=== PATIENT | male | born 1950 | race Caucasian/White ===

== ENCOUNTER 2022-07-15 05:49 | Outpatient (CLI) | payer OTHER, SELFPAY ==
--- OUTSIDE RECORDS SUMMARY | 2022-07-24 14:35 | XMS_ITS | Clinical Summary ---
:1950 Author Organization [facility] [place] [address] Care Team Providers Name Role Phone Zeeshan Jones MD Primary Care Provider [phone] Aaron Verdin DPM Unavailable Allergies No [...] if needed. Primary osteoarthritis of right knee [place]-3 Fatty Acids Take 1-2 capsules 0 05/20/2019 [...] Active equipment [employer], (DME)Indications: LARGE, RE: [id number] Plantar fasciitis hydrocortisone 1 % Apply topically [...] with specific stimuli 08/11/2015 Overview: Last seizure 1978 in [place] Pure hypercholesterolemia 07/18/2011 cerebral palsy Overview: Affecting whole left side Essential hypertension Resolved Problems Problem Noted Date Resolved Date Infantile cerebral palsy, unspecified 03/06/2007 Other convulsions 03/06/2007 09/10/2008 Epilepsy 08/11/2015 Encounters Date Type Specialty Care Team Description 07/15/2022 Orders Only Scanner <No scans attac hed> 06/11/2022 Office Visit Frieda Hudson Emily, DO Ear Pro blem (Both ears) 06/11/2022 Travel from Last 3 Months Immunizations Name Administration Dates Next Due COVID-19 vaccine (Intercasting 06/11/2022 30mcg/0.3mL) 12YO+ SOHEILA-SUCROSE PF, MDV Influenza [...] 167.6 cm (5' 6) 11/16/2019 9:46 AM 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 from Last 3 Months Results SCAN-RADIOLOGY REPORT (07/15/2022 12:00 AM CDT) Narrative This result has an attachment that is no t available. 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
== END 2022-07-15 05:50 | disposition home or self-care (01) ==
PROVIDERS: PCP Family Medicine; Visit Provider Internal Medicine
DX: S49.91XA Unspecified injury of right shoulder and upper arm, initial encounter (principal); W18.09XA Striking against other object with subsequent fall, initial encounter; Y92.091 Bathroom in other non-institutional residence as the place of occurrence of the external cause
CPT/HCPCS: A0425; A0429

== ENCOUNTER 2022-07-15 06:07 | Emergency (ER) | payer OTHER, SELFPAY ==
--- NOTE | 2022-07-15 06:14 | CRLHL7_ITS ---
For Patients: As a result of the Cures Act, medical imaging exams and procedure reports are released immediately into your electronic medical record. You may view this report before your referring provider. If you have questions, please contact your health care provider. INDICATION: Injury. Right-sided pain. FINDINGS: Three views of the right shoulder show no evidence of acute fracture or dislocation. No other bony or soft tissue abnormalities identified. Dictated by Valentin Cummings MD @ 07/15/2022 7:31:55 AM Dictated by: Valentin Cummings MD @ 07/15/2022 07:32:00 (Electronically Signed)
--- NOTE | 2022-07-15 06:14 | CRLHL7_ITS ---
For Patients: As a result of the Cures Act, medical imaging exams and procedure reports are released immediately into your electronic medical record. You may view this report before your referring provider. If you have questions, please contact your health care provider. INDICATION: Knee pain. FINDINGS: Three views of the right knee show no evidence of acute fracture. Lateral patellar subluxation/dislocation. Medial and lateral joint space narrowing. Chondrocalcinosis. No other bony or soft tissue abnormalities identified. Dictated by Valentin Cummings MD @ 07/15/2022 7:30:36 AM Dictated by: Valentin Cummings MD @ 07/15/2022 07:30:44 (Electronically Signed)
--- NOTE | 2022-07-15 06:14 | CRLHL7_ITS ---
For Patients: As a result of the Cures Act, medical imaging exams and procedure reports are released immediately into your electronic medical record. You may view this report before your referring provider. If you have questions, please contact your health care provider. INDICATION: Injury. Pain. FINDINGS: Three views of the right ankle show no evidence of acute fracture or dislocation. Vascular calcifications. Plantar calcaneal spur. No other bony or soft tissue abnormalities identified. Dictated by Valentin Cummings MD @ 07/15/2022 7:33:33 AM Dictated by: Valentin Cummings MD @ 07/15/2022 07:33:40 (Electronically Signed)
--- NOTE | 2022-07-15 06:28 | ED_ITS ---
HPI - General Adult General Chief complaint: Fall/Minor Trauma Stated complaint: Rt sided pain Time Seen by Provider: 07/15/22 06:14 History of Present Illness HPI narrative: Pt is a 72 year old gentleman who presents after a minor fall at home. Pt has cerebral palsy but still lives in an independent living apartment. Pt states that he normally has a lamp on but this morning it wasnt on which led to him stumbling. Pt did not lose consciousness or hit his head. He states that he has some mild pain in his right shoulder, knee and ankle but is able to bear weight and can move the right shoulder without difficulty. Review of pt's record shows that he has had similar falls with similar patterns of discomfort in the past. Pt has CP and has chronic loss of function in the left arm and shoulder. No other injuries noted. Pt checked out well with EMS prior to coming in but wanted to be seen as a precaution. Minimal pain. No other injuries are associated symptoms. Related Data Home Medications Medication Instructions Recorded Confirmed carbamazepine 200 mg tablet 200 mg PO TID 07/15/22 07/15/22 hydrocortisone 1 % topical cream 1 applic topical BID 07/15/22 07/15/22 lisinopril 10 mg tablet 10 mg PO DAILY 07/15/22 07/15/22 Allergies Allergy/AdvReac Type Severity Reaction Status Date / Time No Known Drug Allergies Allergy Verified 07/15/22 06:31 Review of Systems Status of ROS: Reports: 10 or more systems reviewed and unremarkable except as noted in History and below [facility] Medical History (Updated 07/15/22 @ 07:48 by Rios Vann MD) Cerebral palsy Osteoarthritis Seizure disorder Social History Smoking Status: Never smoker Do you use any of these nicotine containing products: None How often do you have a drink containing alcohol: never How often do you have six or more drinks on one occasion: Never AUDIT-C Alcohol total score: 0 Non-prescribed substance use: denies use Exam Narrative: Exam Narrative: EXAM GENERAL: Patient appears comfortable and well. EYES: No scleral icterus. THYROID: no thyroid nodules or thyromegaly. LYMPH: No supraclavicular or cervical lymphadenopathy. SKIN: Visible skin seen during exam normal or with benign process only. EXT: Chronic spastisity noted in the left arm. Palpation of the right shoulder is normal with normal range of motion Palpation of the right knee and ankle are also normal with normal range of motion. Pt bears weight as normal as he normally walks with a cane. HEART: Regular rate and rhythm with no murmurs, rubs, or gallops. LUNGS: Clear to auscultation bilaterally with no crackles or wheezes. ABD: Soft, non tender, non distended. PSYCH: Good eye contact, speech is not pressured. Const: Vital Signs, click to edit/add: Vital Signs - 24 hr 07/15/22 06:29 Temperature 98.6 F Pulse Rate [Right Pulse Oximeter] 72 Respiratory Rate 16 Blood Pressure [Ri ght Upper Arm] 125/78 Pulse Oximetry 99 Oxygen Delivery Me thod Room Air Course Course Hospital Course: Pt seen and examined. He is ambulated and does well. X rays of the right shoulder, knee and ankle ordered. Reevaluation(s) Reevaluation #1: Pt feeling better. Able to bear weight. X rays of Right Shoulder and Ankle are normal with the exception of osteoarthritis. Interestingly x ray of the R Knee shows terrible osteoarthritis with subluxation of the patella. It appears that the subluxation is chronic as I palpate his knee and am able to move the patella without significant pain. The Patella returns to the original position and the patient states that the knee has the usual range of motion and function. Similar position of patella seen on previous films. Most of the pain is in the right ankle which is chronic. Time: 07:37 Vital Signs Vital signs: Initial Vital Signs Temperature 98.6 F 07/15/22 06:29 Temperature Source Temporal Artery Scan 07/15/22 06:29 Pulse Rate 72 07/15/22 06:29 Respiratory Rate 16 07/15/22 06:29 Blood Pressure 125/78 07/15/22 06:29 Blood Pressure Mean 93 07/15/22 06:29 Pulse Oximetry 99 07/15/22 06:29 Oxygen Delivery Method 07/15/22 06:29 Vital Signs Temperature 98.6 F 07/15/22 06:29 Pulse Rate 72 07/15/22 06:29 Respiratory Rate 16 07/15/22 06:29 Blood Pressure 125/78 07/15/22 06:29 Pulse Oximetry 99 07/15/22 06:29 Oxygen Delivery Method 07/15/22 06:29 Temperature 98.6 F 07/15/22 06:29 Pulse Rate 72 07/15/22 06:29 Respiratory Rate 16 07/15/22 06:29 Blood Pressure 125/78 07/15/22 06:29 Pulse Oximetry 99 07/15/22 06:29 Oxygen Delivery Method 07/15/22 06:29 Medical Decision Making MDM Narrative Medical decision making narrative: Pt is a 72 year old gentleman who stumbled in his apartment. Pt was near his usual level of functioning and checked out ok with EMS but wanted to come in as a precaution. Pt had pain in his R shoulder, knee and ankle. No LOC or head or neck injury. Xrays showed chronic osteoarthritis with subluxation of the patella which appears to be present on previous x rays which I reviewed. I did manipulate the patella without pain however the patella continues to rest laterally. ROM similar to baseline and pain is resolved. Pt ambulates at baseline and would like to return to home. Differential Diagnosis Differential Diagnosis: Fractures, Sprains, Ligamentous Tear, Contusion Discharge Plan Discharge Clinical Impression: Fall Patient Disposition: Home, Self-Care Condition: Stable Instructions: Fall Prevention for Older Adults (ED) Additional Instructions: Ice Tylenol Rest Follow up with your doctor if symptoms persist Activity Level: Activity as Tolerated Discharge Diet: Regular Prescriptions: No Action carbamazepine 200 mg tablet 200 mg PO TID Label Comments: TAKE ONE TABLET BY MOUTH THREE TIMES DAILY hydrocortisone 1 % cream 1 applic topical BID Label Comments: APPLY TOPICALLY TO AFFECTED AREA(S) 2 TIMES DAILY. lisinopril 10 mg tablet 10 mg PO DAILY Label Comments: TAKE ONE TABLET BY MOUTH EVERY DAY Follow Up/Referrals: Zeeshan Jones MD [Primary Care Provider] - Stand Alone Forms: [employer] Info Instructions
[2022-07-15 06:29] VITALS: BP 125/78; PULSE 72; RESP 16; TEMP 37; O2SAT 99; BMI 28.7
--- OUTSIDE RECORDS SUMMARY | 2022-07-15 07:20 | XMS_ITS | Clinical Summary ---
:1950 Author Organization [employer] [facility] [employer] [place] [address] Care Team Providers Name Role Phone Zeeshan Jones MD Primary Care Provider [phone] Aaron Verdin DPM Unavailable Allergies No known active allergies Medications Medication Sig Dispensed Refills Start Date End Date Status multivitamin (MVI) Take 1 tablet by 0 08/11/2015 Active tablet mouth once daily. mupirocin 2% topical Apply topically to 30 g 2 12/26/2016 Active (BACTROBAN OINTMENT) affected area(s) 3 ointmentIndications: times daily. May Impetigo switch to cream if covered better by insurance triamcinolone Apply topically to 60 g 0 12/13/2017 Active (ARISTOCORT; affected area(s) 2 KENALOG) 0.1 % times daily. creamIndications: Dermatitis acetaminophen Take 1-2 tablets by 0 05/20/2019 Active (TYLENOL EXTRA mouth 2 times STRGTH) 500 mg daily. Max tabletIndications: acetaminophen dose: Primary 4000mg in 24 hrs. osteoarthritis of right knee ibuprofen (ADVIL; Take 1 tablet by 0 05/20/2019 Active MOTRIN) 200 mg mouth 2 times daily tabletIndications: if needed. Primary osteoarthritis of right knee [place]-3 Fatty Acids Take 1-2 capsules 0 05/20/2019 Active (FISH OIL) 500 mg by mouth once capsuleIndications: daily. Primary osteoarthritis of right knee glucosamine up Take 1-2 by mouth 0 05/20/2019 Active 2KCl-chondroit daily (GLUCOSAMINE-CHONDRO ITIN DS) 500-400 mg tabIndications: Primary osteoarthritis of right knee miscellaneous As directed. OK to 1 Each 0 05/28/2019 Active medical supply repair current AFO miscIndications: Congenital monoplegia (HC) durable medical PLANTAR FASCIITIS 1 Each 0 08/15/2021 Active equipment [employer], (DME)Indications: LARGE, RE: [id number] Plantar fasciitis hydrocortisone 1 % Apply topically to 14.2 g 0 08/16/2021 Active creamIndications: affected area(s) 2 Dermatitis times daily. lisinopriL Take 1 Tablet (10 90 Tablet 3 02/12/2022 Active (PRINIVIL; ZESTRIL) mg) by mouth once 10 mg daily. tabletIndications: Essential hypertension carBAMazepine Take 1 Tablet (200 270 Tablet 3 02/12/2022 Active (TEGRETOL) 200 mg mg) by mouth 3 tabletIndications: times daily. 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 Overview: Last seizure 1979 in [place] Pure hypercholesterolemia 07/18/2011 cerebral palsy Overview: Affecting whole left side Essential hypertension Resolved Problems Problem Noted Date Resolved Date Infantile cerebral palsy, unspecified 03/06/2007 Other convulsions 03/06/2007 09/10/2008 Epilepsy 08/11/2015 Encounters Date Type Specialty Care Team Description 06/11/2022 Office Visit Frieda Hudson, DO Ear Pro blem (Both ears) 06/11/2022 Travel from Last 3 Months Immunizations Name Administration Dates Next Due COVID-19 vaccine (PickParkNTKrush 06/11/2022 30mcg/0.3mL) 12YO+ SOHEILA-SUCROSE PF, MDV Influenza A (H1N1), Inactivated (Age 1210/24/2009 >=3 Years) Influenza, High-dose Inactivated 08/13/2016, 08/11/2015 Influenza, IIV3 (Age >=3 years) 08/05/2013, 08/08/2012, 07/05, 07/13/2010, 07/14/2009, 08/20/2008, 08/27/2007, 08/20/2006 Influenza, IIV4 08/10/2014 Influenza, Inactivated AIIV4 (Age 65+ 08/15/2021 Years) Preserv Free Influenza, Inactivated IIV3 (Age 65+ 08/28/2018, 08/26/2017 Years) Preserv Free Pneumococcal Poly,23-Valent 12/06/2016 (Pneumovax) Pneumococcal conj 13-Valent (Prevnar 08/11/2015 13) Td (Age >=7 Years) 10/01/1997 Tdap 08/20/2008 Zoster (Zostavax-ZVL, live) 08/08/2012 Family History Medical History Relation Name Comments Other Father sarcoidosis Diabetes Maternal Aunt Cancer Mother multiple myeloma Heart Disease Other none certain Relation Name Status Comments Father Maternal Aunt Mother Other Social History Tobacco Use Types Packs/Day Years Used Date Never Smoker Smokeless Tobacco: Never Used Tobacco Cessation: Counseling Given: Yes Alcohol Use Standard Drinks/Week Comments No 0 (1 standard drink = 0.6 oz pure alcoho l) Sex Assigned at Date Recorded Not on file Obstetrics History Last Filed Vital Signs Vital Sign Reading Time Taken Comments Blood Pressure 137/80 06/11/2022 1:24 PM CDT Pulse 96 06/11/2022 1:24 PM CDT Temperature 36.9 ??C (98.5 ??F) 04/14/2020 2:21 PM CDT Respiratory Rate 12 06/15/2017 8:01 AM CDT Oxygen Saturation 99% 06/11/2022 1:24 PM CDT Inhaled Oxygen Concentration - - Weight 99.2 kg (218 lb 9.6 oz) 06/11/2022 1:24 PM CDT Height 167.6 cm (5' 6) 11/16/2019 9:46 AM 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 Body Mass Index 35.28 11/16/2019 9:46 AM RESIDENTIAL CARPENTER Plan of Treatment Upcoming Encounters Date Type Specialty Care Team Description 08/07/2022 Office Visit Frieda Hudson , DO [address] [place] [phone] (Wo rk) Health Maintenance Due Date Last Done Comments Colonoscopy through age 75 1995 Zoster (shingles) series for age 1110/03/2012 08/08/2012 50+ (2 of 3) Tetanus booster 08/20/2018 08/20/2008, 10/01/1997 BMI (ht and wt on same day) for 11/16/2020 11/16/2019, 05/04, age 18+ 08/28/2018, Additional history exists Influenza for age 65+ 07/05/2022 08/15/2021, 08/28/2018, 08/26/2017, Additional history exists COVID-19 vaccine series (4 - 10/11/2022 06/11/2022, 021, Booster for Moderna series) 11/30/2020 Medicare Wellness for age 65+ 02/12/2023 02/12/2022, 2020, 11/16/2019, Additional history exists Depression screening for age 12+ 02/13/2023 02/13/2022, 09/2022, 12/22/2020, Additional history exists Lipids for age 45-75 02/12/2027 02/12/2022, 12/21/2020, 11/16/2019, Additional history exists Tdap Completed 08/20/2008 Hepatitis C screening for age Completed 08/11/2015 18-79 Pneumococcal series for age 65+ Completed 12/06/2016, 06/2015 Results Not on filefrom Last 3 Months Insurance Payer Benefit Plan / Subscriber ID Effective Dates Phone Addre ss Type Group WC WORKERS WC [employer] [id number] 2015-Presen [id number] [place] [place] [address] HUMANA GOLD MR HUMANA CHOICE [id number] 2021-Present [address] [address] [place] [address] [address] ([address]) [address] [place] [id number] [employer] Workers Comp Self 1950 [address] (Home) [address] [place] [id number] Advance Directives Documents on File Type Date Recorded 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
--- OUTSIDE RECORDS SUMMARY | 2022-07-15 07:20 | XMS_ITS | Clinical Summary ---
:1950 Author Organization [facility] Address [address] [place] [address] Encounter 02/26/22 - 02/26/[address] [address] Encounter Diagnosis Right knee pain (Discharge Diagnosis) - 02/26/22 Left-sided hemiplegic cerebral palsy (Discharge Diagnosis) - 02/26/22 Discharge Disposition: Home or Self Care Attending Physician: Unknown Provider, MD Admitting Physician: Unknown Provider, MD Allergies, Adverse Reactions, Alerts No Known Medication Allergies Discharge Medications acetaminophen (acetaminophen 500 mg oral tablet) Status: Ordered Start Date: 07/14/19 1-2 tabs Oral 2 times a day. carBAMazepine (carBAMazepine 200 mg oral tablet) Status: Ordered Start Date: 07/14/19 1 tabs Oral 3 times a day. glucosamine-chondroitin (Chondroitin-Glucosamine 400 m g-500 mg oral tablet) Status: Ordered Start Date: 07/14/19 1-2 tabs Oral every day. ibuprofen (ibuprofen 100 mg oral tablet) Status: Ordered Start Date: 07/14/19 1 tabs Oral 2 times a day as needed pain, mild. lisinopril (lisinopril 10 mg oral tablet) Status: Ordered Start Date: 07/14/19 1 tabs Oral every day. multivitamin (multivitamin adult, oral tablet) Status: Ordered Start Date: 07/14/19 1 tabs Oral every day. nonformulary medication (Calcium) Status: Ordered Start Date: 02/26/22 1 tablet Oral 2 times a day. omega-3 polyunsaturated fatty acids ([place]-3 oral caps ule) Status: Ordered Start Date: 07/14/19 1-2 caps PO Qday (500mg cap). Problem List Condition Effective Dates Status Health Status Informant At high risk for falls(Confirmed)1 Active 1Added via Discern Expert ADD_[email or web address]_PROBLEM Rule. Hospital Discharge Diagnosis Left-sided hemiplegic cerebral palsy (Discharge Diagnosis) - 02/26/22 Right knee pain (Discharge Diagnosis) - 02/26/22 (This Visit) Vital Signs Most recent to oldest [Reference Range]: 1 Pain Present No actual or suspected pain (02/26/22 3:13 PM) Social History Social History Type Response Smoking Status Never smoker; Exposure to Se condhand Smoke: No entered on: 02/26/22 Sex
--- OUTSIDE RECORDS SUMMARY | 2022-07-15 07:20 | XMS_ITS | Clinical Summary ---
:1950 Author Organization [facility] Address [address] [place] [address] Encounter 07/14/19 - 07/14/19 [facility] [address] [place] [address] Encounter Diagnosis Right knee pain (Discharge Diagnosis) - 07/14/19 Left-sided hemiplegic cerebral palsy (Discharge Diagnosis) - 07/14/19 Plantar fasciitis of right foot (Discharge Diagnosis) - 07/14/19 Discharge Disposition: Home or Self Care Attending Physician: Lisa Gerardo MD Admitting Physician: Lisa Gerardo MD Referring Physician: Self Nonphysicianreferral Allergies, Adverse Reactions, Alerts No Known Medication Allergies Discharge Medications acetaminophen (acetaminophen 500 mg oral tablet) 1-2 tabs Oral 2 times a day. carBAMazepine (carBAMazepine 200 mg oral tablet) 1 tabs Oral 3 times a day. glucosamine-chondroitin (Chondroitin-Glucosamine 400 m g-500 mg oral tablet) 1-2 tabs Oral every day. ibuprofen (ibuprofen 100 mg oral tablet) 1 tabs Oral 2 times a day as needed pain, mild. lisinopril (lisinopril 10 mg oral tablet) 1 tabs Oral every day. multivitamin (multivitamin adult, oral tablet) 1 tabs Oral every day. mupirocin topical (mupirocin 2% topical ointment) 1 Application Topical 3 times a day. for impetigo. omega-3 polyunsaturated fatty acids ([place]-3 oral caps ule) 1-2 caps PO Qday (500mg cap). phenytoin (phenytoin 100 mg oral capsule, extended rel ease) 1 Capsules Oral 3 times a day. primidone (primidone 250 mg oral tablet) 1/2 tab AM, 1/2 tab noon and 1 tab QHS. triamcinolone topical (triamcinolone 0.1% topical crea m) 1 Application Topical 2 times a day. for dermatitis. Problem List Condition Effective Dates Status Health Status Informant At high risk for falls(Confirmed)1 Active 1Added via Discern Expert ADD_HIGHRISKFALL_PROBLEM Rule. Hospital Discharge Diagnosis Left-sided hemiplegic cerebral palsy (Discharge Diagnosis) - 07/14/19 Plantar fasciitis of right foot (Discharge Diagnosis) - 07/14/19 Right knee pain (Discharge Diagnosis) - 07/14/19 (This Visit) Vital Signs Most recent to oldest [Reference Range]: 1 Temperature Temporal Artery [36.5-38 Deg C] 36.3 Deg C *LOW* (07/14/19 12:29 PM) Peripheral Pulse Rate [50-90 bpm] 90 bpm (07/14/19 12:29 PM) Blood Pressure [100-140/60-90 mmHg] 131/70 mmHg (07/14/19 12:29 PM) Weight Dosing 87.7 kg (07/14/19 12:29 PM) Pain Present Yes actual or suspected pain (07/14/19 1:13 PM) Able to self report Yes (07/14/19 1:13 PM) able to use numeric rating scale Yes (07/14/19 1:13 PM) Social History Social History Type Response Smoking Status Never smoker; Exposure to Se condhand Smoke: No entered on: 07/14/19 Sex
--- NOTE | 2022-07-15 08:12 | ED.NURSE ---
pt up to br independent with cane, steady gait. pt dressed and waiting for ride home. dc teaching complete, pt drinking coffee.
--- NOTE | 2022-07-15 08:57 | ED.NURSE ---
ride here, pt ambulated with cane out to car.
== END 2022-07-15 08:57 | disposition home or self-care (01) ==
PROVIDERS: Emergency Provider Internal Medicine; PCP Family Medicine
DX: S49.91XA Unspecified injury of right shoulder and upper arm, initial encounter (principal); S89.91XA Unspecified injury of right lower leg, initial encounter; S99.911A Unspecified injury of right ankle, initial encounter; W01.0XXA Fall on same level from slipping, tripping and stumbling without subsequent striking against object, initial encounter; Z91.81 History of falling; Y93.89 Activity, other specified; Y92.092 Bedroom in other non-institutional residence as the place of occurrence of the external cause; Y99.9 Unspecified external cause status
CPT/HCPCS: 73030; 73562; 73610; 99283

== ENCOUNTER 2022-10-15 10:15 | Emergency (ER) | payer OTHER, SELFPAY ==
[2022-10-15 11:18] VITALS: BP 142/69; PULSE 74; RESP 18; TEMP 36.1; O2SAT 97; BMI 28.7
--- NOTE | 2022-10-15 13:23 | CRLHL7_ITS ---
For Patients: As a result of the Cures Act, medical imaging exams and procedure reports are released immediately into your electronic medical record. You may view this report before your referring provider. If you have questions, please contact your health care provider. Indication: Pain and swelling Technique: Four images of the left 5th toe were acquired Comparison: None Findings: Probable fracture at the base of the proximal phalanx of the left 5th toe. No dislocation Impression: Probable fracture at the base of the proximal phalanx of the left 5th toe. No dislocation. Dictated by Kiran Godwin MD @ 10/15/2022 2:46:44 PM (Electronically Signed)
--- NOTE | 2022-10-15 15:42 | ED.NURSE ---
pt has large cyst on back that had purulent drainage drain from it when he sat up. pt wanted dr. osorio to see it. pt ready to dc. dr. osorio was going to miguel a cyst on back, but pt decided to go to primary for that.
--- NOTE | 2022-10-25 08:44 | ED_ITS ---
HPI - General Adult General Chief complaint: Edema Stated complaint: Severe edema left foot skin tear Time Seen by Provider: 10/15/22 13:16 History of Present Illness HPI narrative: 72-year-old man presenting to the emergency department with complaint of left foot swelling and some mild pain. Does have a posterior brace for ankle/ foot support in the setting of cerebral palsy. This brace is uncomfortable to place. accompanied here by family. They are worried I believe about potential infection. denies any trauma. No particular shortness of breath. no chest pain. no fever. No drainage from foot. As I examined becomes apparent that there is tear in the tissue/skin. This may have occurred when attempting to pull on his sock. Related Data Home Medications Medication Instructions Recorded Confirmed carbamazepine 200 mg tablet 200 mg PO TID 07/15/22 07/15/22 hydrocortisone 1 % topical cream 1 applic topical BID 07/15/22 07/15/22 lisinopril 10 mg tablet 10 mg PO DAILY 07/15/22 07/15/22 Allergies Allergy/AdvReac Type Severity Reaction Status Date / Time No Known Drug Allergies Allergy Verified 07/15/22 06:31 Review of Systems Status of ROS: Reports: 6 or more systems reviewed and unremarkable except as noted in History and below [facility] Medical History Cerebral palsy Osteoarthritis Seizure disorder Social History Smoking Status: Never smoker Do you use any of these nicotine containing products: None How often do you have a drink containing alcohol: never How often do you have six or more drinks on one occasion: Never AUDIT-C Alcohol total score: 0 Non-prescribed substance use: denies use Exam Narrative: Exam Narrative: Pleasant. NAD. Affectation consistent with cerebral palsy. Skin is warm and dry. There is Mild + swelling of the left foot relative to the right. no significant calor. Very mild erythema more distally. Some pitting aspect. Large callus in the mid outer dorsal lateral foot; no inflammat ory changes related to this. Examination further does reveal a cut or a tear inside /between the 4th and 5th toes. Mild erythema surrounding this. No purulent drainage. Const: Documenting provider has reviewed patient's vital signs: yes Course Vital Signs Vital signs: Initial Vital Signs Temperature 97.0 F L 12/12/22 11:18 Temperature Source Temporal Artery Scan 10/15/22 11:18 Pulse Rate 74 10/15/22 11:18 Respiratory Rate 18 10/15/22 11:18 Blood Pressure 142/69 H 10/15/22 11:18 Blood Pressure Mean 93 10/15/22 11:18 Blood Pressure Position Sitting 10/15/22 11:18 Pulse Oximetry 97 10/15/22 11:18 Oxygen Delivery Method 10/15/22 11:18 Vital Signs Temperature 97.0 F L 10/15/22 11:18 Pulse Rate 74 10/15/22 11:18 Respiratory Rate 18 10/15/22 11:18 Blood Pressure 142/69 H 10/15/22 11:18 Pulse Oximetry 97 10/15/22 11:18 Oxygen Delivery Method 10/15/22 11:18 Temperature 97.0 F L 10/15/22 11:18 Pulse Rate 74 10/15/22 11:18 Respiratory Rate 18 10/15/22 11:18 Blood Pressure 142/69 H 10/15/22 11:18 Pulse Oximetry 97 10/15/22 11:18 Oxygen Delivery Method 10/15/22 11:18 Medical Decision Making MDM Narrative Medical decision making narrative: frankly would be worried about a fracture here. Proposed an x-ray. by my read there is a non dislocated the fracture at the base of the 5th phalanx. Return to place antibiotic ointment and gauze to prevent maceration of tissues, and apply marcello taping chevron. tolerates this well. In extremely busy emergency department and unfortunately already long wait for Mr. Gong, I am alerted to some swelling swelling and drainage that just started in his mid upper back. Return to assess this and can appreciate a 2.5 cm soft swelling with central point of purulent drainage. No surrounding erythema or calor. Mildly tender to palpation. Presume rupturing / draining sebaceous cyst. I do offer to return to I and D this but having to attend to other patient concerns in the emergency department by the time I have able to return they are deciding they would rather just follow up in primary care. I do have concerns about this becoming further infected of though it is draining. Recommending close follow-up. Discharge Plan Discharge Clinical Impression: Laceration, Fracture of toe Patient Disposition: Home w/ Parent or Adult Condition: Stable Additional Instructions: Elevate for discomfort. Marcello tape as demonstrated for the next 3-[address] 1 gauze between toes while doing this. Placed antibiotic ointment with daily dressing changes over the next week as well. Watch for increasing/spreading redness, heat, marked increase in pain, purulent drainage. Follow-up in 2-3 weeks for re-evaluation. Regarding this likely sebaceous cyst abscess, please follow-up as soon as possible Primary Care per your preference. Prescriptions: No Action carbamazepine 200 mg tablet 200 mg PO TID Label Comments: TAKE ONE TABLET BY MOUTH THREE TIMES DAILY hydrocortisone 1 % cream 1 applic topical BID Label Comments: APPLY TOPICALLY TO AFFECTED AREA(S) 2 TIMES DAILY. lisinopril 10 mg tablet 10 mg PO DAILY Label Comments: TAKE ONE TABLET BY MOUTH EVERY DAY Follow Up/Referrals: Frieda Hudson DO [Primary Care Provider] - Stand Alone Forms: [facility] Info Instructions
== END 2022-10-15 15:40 | disposition home or self-care (01) ==
PROVIDERS: Emergency Provider Family Medicine; PCP Family Medicine
DX: S92.505A Nondisplaced unspecified fracture of left lesser toe(s), initial encounter for closed fracture (principal)
CPT/HCPCS: 73660; 99283

== ENCOUNTER 2022-12-04 12:26 | Outpatient (CLI) | payer OTHER, SELFPAY | END 2022-12-04 12:27 | disposition home or self-care (01) | PROVIDERS: PCP Family Medicine; Visit Provider Nurse Practitioner Family | DX: L72.3 Sebaceous cyst (principal); E66.9 Obesity, unspecified; Z68.33 Body mass index [BMI] 33.0-33.9, adult | CPT/HCPCS: 97597; 99213 ==

== ENCOUNTER 2022-12-11 10:10 | Outpatient (CLI) | payer OTHER, SELFPAY | END 2022-12-11 10:11 | disposition home or self-care (01) | LOC: WOUND 10:11 | PROVIDERS: PCP Family Medicine; Visit Provider Nurse Practitioner Family | DX: L72.3 Sebaceous cyst (principal) | CPT/HCPCS: 97597 ==

== ENCOUNTER 2022-12-18 10:09 | Outpatient (CLI) | payer OTHER, SELFPAY | END 2022-12-18 10:10 | disposition home or self-care (01) | LOC: WOUND 10:09 | PROVIDERS: PCP Family Medicine; Visit Provider Nurse Practitioner Family | DX: L72.3 Sebaceous cyst (principal) | CPT/HCPCS: 97597 ==

== ENCOUNTER 2023-01-01 10:01 | Outpatient (CLI) | payer OTHER, SELFPAY | END 2023-01-01 10:02 | disposition home or self-care (01) | LOC: WOUND 10:01 | PROVIDERS: PCP Family Medicine; Visit Provider Physician Assistant Surgical | DX: L72.3 Sebaceous cyst (principal) | CPT/HCPCS: 11042 ==

== ENCOUNTER 2023-01-15 10:09 | Outpatient (CLI) | payer OTHER, SELFPAY ==
[2023-01-15 12:00] LABS: Basophils Absolute Auto 0.03 K/uL (0.00-0.30); Basophils Percent Auto 0.6 % (0.0-3.0); Eosinophils Absolute Auto 0.01 K/uL (0.00-0.50); Eosinophils Percent Auto 0.2 % (0.0-7.0); Hemoglobin* 14.6 gm/dL (13.5-17.5); Immature Granulocytes Abs Auto 0.01 K/uL (0.00-0.30); Immature Granulocytes Pct Auto 0.2 %; Lymphocytes Percent Auto 19.5 % (20-44); Mean Corpuscular HGB Conc 34 gm/dL (32-36); Mean Corpuscular Hemoglobin 32 pg (26-34); Mean Corpuscular Volume 94 fL (80-100); Monocytes Percent Auto 8.7 % (0.0-11.0); Neutrophils Absolute Auto 3.27 K/uL (1.7-7.0); Neutrophils Percent Auto 70.8 % (42.0-72.0); Platelet Count* 186 K/uL (140-440); RDW Coefficient of Variation % 12.6 % (11.5-15.5); Red Blood Count 4.59 m/uL (4.30-5.90); White Blood Count* 4.62 K/uL (4.50-11.00)
[2023-01-15 12:12] LABS: Slide Review Reflex No
[2023-01-15 12:25] LABS: Chloride* 108 mmol/L (96-114); Sodium* 144 mmol/L (135-149)
[2023-01-15 12:26] LABS: Potassium* 4.1 mmol/L (3.6-5.1)
[2023-01-15 12:28] LABS: Creatinine* 0.8 mg/dL (0.5-1.5); Estimated Glomerular Filt Rate 94 ml/min
[2023-01-15 12:29] LABS: Blood Urea Nitrogen* 23 mg/dL (7-30); Calcium* 9.2 mg/dL (8.4-10.6); Carbon Dioxide* 29 mmol/L (20-32); Glucose* 100 mg/dL (60-115)
[2023-01-15 13:04] LABS: Ferritin* 49.6 ng/mL (17.9-464.0)
[2023-01-16 17:28] LABS: Prealbumin 32.8 mg/dL (20.0-40.0)
[2023-01-17 00:51] LABS: Zinc, Serum/Plasma 84.7 ug/dL (60.0-120.0)
== END 2023-01-15 10:10 | disposition home or self-care (01) ==
LOC: WOUND 10:09
PROVIDERS: PCP Family Medicine; Visit Provider Nurse Practitioner Family
DX: L72.3 Sebaceous cyst (principal); I10 Essential (primary) hypertension; E78.5 Hyperlipidemia, unspecified; G80.9 Cerebral palsy, unspecified; E66.9 Obesity, unspecified; Z68.33 Body mass index [BMI] 33.0-33.9, adult; Z13.1 Encounter for screening for diabetes mellitus
CPT/HCPCS: 36415; 80048; 82728; 83036; 84134; 84630; 85025; 97597

== ENCOUNTER 2023-01-29 10:22 | Outpatient (CLI) | payer OTHER, SELFPAY | END 2023-01-29 10:23 | disposition home or self-care (01) | LOC: WOUND 10:22 | PROVIDERS: PCP Family Medicine; Visit Provider Physician Assistant Surgical | DX: L72.3 Sebaceous cyst (principal) | CPT/HCPCS: 11042 ==

== ENCOUNTER 2023-02-06 10:06 | Day surgery (SDC) | payer OTHER, SELFPAY ==
[2023-02-06] MEDS: TETRACAINE 0.5% OPHTH 1 DROP EYE-RIGHT ×2 (10:51→10:57)
[2023-02-06] MEDS: KETOROLAC OPHTH 0.5% 1 DROP EYE-RIGHT ×3 (10:56→11:10)
[2023-02-06] MEDS: SODIUM CHLORIDE 0.9 % (FLUSH) 10 ML SYRINGE IVF (11:16)
[2023-02-06 11:22] VITALS: BP 134/78; PULSE 65; RESP 16; TEMP 36.8; O2SAT 99; BMI 35.6
[2023-02-06] MEDS: TETRACAINE 0.5% OPHTH 2 DROP EYE-RIGHT (12:00)
--- NOTE | 2023-02-06 12:02 | W.ANESCHARGE ---
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
[2023-02-06] MEDS: BALANCED SALT IRRIG SOLN 15 ML EYE-RIGHT (12:05)
[2023-02-06 12:40] VITALS: BP 141/80; PULSE 59; RESP 20; TEMP 36.7; O2SAT 98
--- NOTE | 2023-02-06 14:34 | W.PM.OPTPROC ---
Procedure Note Date of procedure: 02/06/23 Will [facility] bill your pro fee for this procedure?: Yes Procedure Description: SURGEON: Ruth Ann Zendejas MD PREOPERATIVE DIAGNOSIS: 1. Nuclear sclerotic cataract, right eye. 2. Miosis, right eye. POSTOPERATIVE DIAGNOSIS: 1. Nuclear sclerotic cataract, right eye. 2. Miosis, right eye. NAME OF OPERATION: Phacoemulsification of cataract with posterior chamber intraocular lens implantation in the right eye with pupilloplasty. ANESTHESIA: Topical. ESTIMATED BLOOD LOSS: Less than 2 cc. COMPLICATIONS: None. PATHOLOGY SPECIMEN: None. INDICATIONS: See consult note for details. The risks, benefits and alternatives of the procedure were explained to the patient, who elected to proceed and signed informed consent to do so. PROCEDURE: The patient was brought to the pre-holding area where the right eye was identified as the operative eye. I placed my initials above this eye. The patient received eye drops consisting of 0.5% tetracaine, 1% tropicamide, 10% phenylephrine, and 0.5% ketorolac. The patient was then brought to the operating room where the right eye was again identified as the operative eye. The eye was prepped with Betadine and draped in the usual sterile ophthalmic fashion. A #15 super-sharp blade was used to create a paracentesis site. 1% non-preserved intracameral lidocaine was injected into the anterior chamber. Endocoat was injected into the anterior chamber. A 2.4 mm keratome was used to create a three-plane self-sealing incision 1 mm anterior to the temporal limbus. A #15 super-sharp blade was used to create four additional paracentesis sites. Four Grieshaber iris hooks were placed in order to stretch the iris. A cystotome was used to create an anterior capsular leaflet. The Utrata forceps were used to extend this to form a continuous curvilinear capsulorrhexis. Hydrodissection was performed. The cataract was removed with phacoemulsification using the [id number] technique. The irrigation and aspiration tip was used to remove the remaining cortex. Healon was injected into the capsular bag. An FLORI ZCB00 intraocular lens of 19.5 diopters was injected into the capsular bag. The four Grieshaber iris hooks were removed. The irrigation and aspiration tip was used to remove the remaining viscoelastic. Miostat was injected into the anterior chamber. Balanced salt solution on a cannula was used to hydrate the wound, and the wound was found to be watertight. The pupil was noted to be round. DISPOSITION: The patient was taken to the recovery room and discharged to home in stable condition. The patient was instructed to call me or go to the emergency department with any sudden change, including dramatic loss of vision, severe pain in the eye or eyebrow region, nausea, or vomiting. The patient will follow up in the clinic tomorrow morning.
== END 2023-02-06 13:20 | disposition home or self-care (01) ==
PROVIDERS: PCP Family Medicine; Visit Provider Ophthalmology
PROC: (CPT 66982; principal; 2023-02-06 10:30)
DX: H25.11 Age-related nuclear cataract, right eye (principal); H57.03 Miosis
CPT/HCPCS: 66982; 00142; 99100; A9270; J2250; J3010; V2632

== ENCOUNTER 2023-02-12 10:05 | Outpatient (CLI) | payer OTHER, SELFPAY | END 2023-02-12 10:06 | disposition home or self-care (01) | LOC: WOUND 10:05 | PROVIDERS: PCP Family Medicine; Visit Provider Nurse Practitioner Family | DX: L72.3 Sebaceous cyst (principal) | CPT/HCPCS: 97597 ==

== ENCOUNTER 2023-02-20 11:50 | Day surgery (SDC) | payer OTHER, SELFPAY ==
[2023-02-20 12:00] VITALS: BP 138/77; PULSE 68; RESP 16; TEMP 36.6; O2SAT 97
[2023-02-20] MEDS: KETOROLAC OPHTH 0.5% 1 DROP EYE-LEFT ×3 (12:00→12:10)
[2023-02-20] MEDS: TETRACAINE 0.5% OPHTH 1 DROP EYE-LEFT ×2 (12:00→12:05)
[2023-02-20] MEDS: SODIUM CHLORIDE 0.9 % (FLUSH) 10 ML SYRINGE IVF (12:15)
[2023-02-20 12:25] VITALS: BMI 33.5
--- NOTE | 2023-02-20 12:37 | W.ANESCHARGE ---
Anesthesia Charges Start Date/Time Anesthesia Start Date: 02/20/23 Anesthesia Start Time: 14:11 Stop Date/Time Anesthesia Stop Date: 02/20/23 Anesthesia Stop Time: 14:47 Summary Extremes of Age - Over 70 or under 1: MDA
--- NOTE | 2023-02-20 12:40 | SUR.PREOP ---
HOME COVID TEST NEGATIVE.
--- NOTE | 2023-02-20 14:14 | P.ANES_ITS ---
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
[2023-02-20] MEDS: BALANCED SALT IRRIG SOLN 15 ML EYE-LEFT (14:20)
[2023-02-20] MEDS: TETRACAINE 0.5% OPHTH 2 DROP EYE-LEFT (14:20)
--- NOTE | 2023-02-20 14:50 | P.OPTPRC_ITS ---
Procedure Note Date of procedure: 02/20/23 Will [facility] bill your pro fee for this procedure?: Yes Procedure Description: SURGEON: Ruth Ann Zendejas MD PREOPERATIVE DIAGNOSIS: Nuclear sclerotic cataract, left eye. POSTOPERATIVE DIAGNOSIS: Nuclear sclerotic cataract, left eye. NAME OF OPERATION: Phacoemulsification of cataract with posterior chamber intraocular lens implantation in the left eye. ANESTHESIA: Topical. ESTIMATED BLOOD LOSS: Less than 2 cc. COMPLICATIONS: None. PATHOLOGY SPECIMEN: None. INDICATIONS: See consult note for details. The risks, benefits and alternatives of the procedure were explained to the patient, who elected to proceed and sign ed informed consent to do so. PROCEDURE: The patient was brought to the pre-holding area where the left eye was identified as the operative eye. I placed my initials above this eye. The patient received eye drops consisting of 0.5% tetracaine, 1% tropicamide, 10% phenylephrine, and 0.5% ketorolac. The patient was then brought to the operating room where the left eye was again identified as the operative eye. The eye was prepped with Betadine and draped in the usual sterile ophthalmic fashion. A #15 super-sharp blade was used to create a paracentesis site. 1% non-preserved intracameral lidocaine was injected into the anterior chamber. Endocoat was injected into the anterior chamber. A 2.4 mm keratome was used to create a three-plane self-sealing incision 1 mm anterior to the temporal limbus. A cystotome was used to create an anterior capsular leaflet. The Utrata forceps were used to extend this to form a continuous curvilinear capsulorrhexis. Hydrodissection was performed. The cataract was removed with phacoemulsification using the [id number] technique. The irrigation and aspiration tip was used to remove the remaining cortex. Healon was injected into the capsular bag. An FLORI ZCB00 intraocular lens of 20.5 diopters was injected into the capsular bag. The irrigation and aspiration tip was used to remove the remaining viscoelastic. Balanced salt solution on a cannula was used to hydrate the wound, and the wound was found to be watertight. The pupil was noted to be round. DISPOSITION: The patient was taken to the recovery room and discharged to home in stable condition. The patient was instructed to call me or go to the emergency department with any sudden change, including dramatic loss of vision, severe pain in the eye or eyebrow region, nausea, or vomiting. The patient will follow up in the clinic tomorrow morning.
[2023-02-20 14:52] VITALS: BP 140/77; PULSE 60; RESP 18; TEMP 36.5; O2SAT 96
== END 2023-02-20 15:19 | disposition home or self-care (01) ==
LOC: OR 11:50
PROVIDERS: PCP Family Medicine; Visit Provider Ophthalmology
PROC: (CPT 66984; principal; 2023-02-20 12:30)
DX: H25.12 Age-related nuclear cataract, left eye (principal)
CPT/HCPCS: 66984; 00142; 99100; A9270; J2250; J3010; V2632

== ENCOUNTER 2023-02-26 10:06 | Outpatient (CLI) | payer OTHER, SELFPAY | END 2023-02-26 10:07 | disposition home or self-care (01) | LOC: WOUND 10:06 | PROVIDERS: PCP Family Medicine; Visit Provider Nurse Practitioner Family | DX: L72.3 Sebaceous cyst (principal) | CPT/HCPCS: 99212 ==

== ENCOUNTER 2023-06-23 15:41 | Outpatient (CLI) | payer OTHER, SELFPAY | END 2023-06-23 15:42 | disposition home or self-care (01) | LOC: AMB 06-27 09:53 | PROVIDERS: PCP Family Medicine; Visit Provider Family Medicine | DX: S39.92XA Unspecified injury of lower back, initial encounter (principal); W01.0XXA Fall on same level from slipping, tripping and stumbling without subsequent striking against object, initial encounter; Y92.038 Other place in apartment as the place of occurrence of the external cause | CPT/HCPCS: A0425; A0429 ==

== ENCOUNTER 2023-06-23 16:03 | Emergency (ER) | payer OTHER, SELFPAY ==
[2023-06-23 16:11] VITALS: BP 136/84; PULSE 77; RESP 18; TEMP 36.1; O2SAT 98; BMI 36.6
--- NOTE | 2023-06-23 18:46 | CRLHL7_ITS ---
For Patients: As a result of the Cures Act, medical imaging exams and procedure reports are released immediately into your electronic medical record. You may view this report before your referring provider. If you have questions, please contact your health care provider. INDICATION: Fall, back pain. TECHNIQUE: CT thoracic spine without contrast. Permanently recorded images are archived. COMPARISON: None. FINDINGS: Vertebrae: Extensor weighted thoracic kyphosis. Alignment is of was normal. There are no fractures or suspicious bony lesions. Discs and facet joints: Mild to moderate multilevel degenerative changes in the disc spaces with marginal osteophyte formation anteriorly. No significant osseous spinal canal or neural foraminal stenosis. Extraspinal findings: Old left posterior 10th rib fracture. Questionable nondisplaced acute left 12th rib fracture, series 4, image 215. 5 mm right upper lobe pulmonary nodule in the periphery, series 4 image 77. Right lower lobe scarring versus atelectasis. IMPRESSION: No acute bony abnormality within the thoracic spine. Exaggerated thoracic kyphosis on a background of mild to moderate multilevel spondylosis. Questionable nondisplaced acute left 12th rib fracture. Recommend correlation with site for focal tenderness. Please note that all CT scans at this facility use dose modulation, iterative reconstruction, and/or weight-based dosing when appropriate to reduce radiation dose to as low as reasonably achievable. Dictated by Thomas Walker MD @ 06/23/2023 7:46:38 PM (Electronically Signed)
--- NOTE | 2023-06-23 18:47 | ED.FALL ---
HPI - Fall General Time Seen by Provider: 18:47 Date Seen: 06/23/23 Chief Complaint: Fall/Minor Trauma Stated Complaint: Fall Time Seen by Provider: 06/23/23 18:39 Source: patient, family, RN notes reviewed, old records reviewed and other (Caregiver) Mode of arrival: ambulatory Limitations: no limitations History of Present Illness HPI Narrative: 73-year-old male who comes in with caregiver after a fall at home. Patient had an injury of the left foot recently, and has what sounds like right arthritis, started falling to the side and then overcorrected and fell onto his back. No head injury or loss of consciousness, no neck pain, complains of some midline back pain and so was brought to the emergency department. Denies abdominal pain, numbness or tingling in the arms legs. He did hit his right elbow but is able to move that without difficulty. Related Data Home Medications Medication Instructions Recorded Confirmed carbamazepine 200 mg tablet 200 mg PO TID 07/15/22 02/20/23 hydrocortisone 1 % topical cream 1 applic topical BID 07/15/22 02/20/23 lisinopril 10 mg tablet 10 mg PO DAILY 07/15/22 02/20/23 acetaminophen 650 mg 650 mg PO Q12H PRN 02/05/23 02/20/23 tablet,extended release Allergies Allergy/AdvReac Type Severity Reaction Status Date / Time No Known Drug Allergies Allergy Verified 02/20/23 12:13 Review of Systems Status of ROS: Reports: 10 or more systems reviewed and unremarkable except as noted in History and below [facility] Medical History Cerebral palsy Osteoarthritis Seizure disorder Social History Smoking Status: Never smoker Do you use any of these nicotine containing products: None How often do you have a drink containing alcohol: never How often do you have six or more drinks on one occasion: Never AUDIT-C Alcohol total score: 0 Non-prescribed substance use: denies use Caffeine: Yes Exam Narrative: Exam Narrative: General: Well-developed and well-nourished, no acute distress Head: Atraumatic and normocephalic Eyes: Pupils are equal reactive, extraocular motions intact, conjunctiva clear ENT: External nose and ears are normal, posterior pharynx without erythema or exudate Neck: No midline cervical tenderness, full spontaneous range of motion the neck, trachea midline, no adenopathy Heart: Regular rate and rhythm no murmurs or thrills Lungs: Clear to auscultation bilaterally without wheezes or crackles Abdomen: Soft, nontender, nondistended with active bowel sounds Musculoskeletal: Midline midthoracic tenderness Neurologic: Awake, alert, and oriented x3, contracture of the left arm related to cerebral palsy Psych: Mood and affect are appropriate Skin: No rashes Const: Vital Signs, click to edit/add: Vital Signs - 24 hr 06/23/23 16:11 Temperature 96.9 F L Pulse Rate [Pulse Oximeter] 77 Respiratory Rate 18 Blood Pressure [Ri ght Upper Arm] 136/84 Pulse Oximetry 98 Oxygen Delivery Me thod Room Air Course Course Hospital Course: Patient seen and examined, prior records reviewed. Patient presents today after fall, mainly complaining of some midline thoracic back tenderness. He does have midline tenderness to palpation and so CT scan will be ordered to evaluate. He complains of some pain in the right elbow but no swelling, tenderness, or pain with passive movement and has full active flexion extension, likelihood of bony injury is low. A CT scan is negative, patient can be discharged. Reevaluation(s) Time of Reevaluation #1: 19:52 Reevaluation #1: CT scan of the thoracic spine does not demonstrate any acute fracture, questionable left 12th rib fracture but patient has no tenderness in this area. In any case, symptom treatment only in stable for discharge. Vital Signs Vital signs: Initial Vital Signs Temperature 96.9 F L 06/23/23 16:11 Temperature Source Temporal Artery Scan 06/23/23 16:11 Pulse Rate 77 06/23/23 16:11 Pulse Rhythm Regular 06/23/23 16:11 Respiratory Rate 18 06/23/23 16:11 Blood Pressure 136/84 06/23/23 16:11 Blood Pressure Mean 101 06/23/23 16:11 Blood Pressure Position Sitting 06/23/23 16:11 Pulse Oximetry 98 06/23/23 16:11 Oxygen Delivery Method Room Air 06/23/23 16:11 Vital Signs Temperature 96.9 F L 06/23/23 16:11 Pulse Rate 77 06/23/23 16:11 Respiratory Rate 18 06/23/23 16:11 Blood Pressure 136/84 06/23/23 16:11 Pulse Oximetry 98 06/23/23 16:11 Oxygen Delivery Method Room Air 06/23/23 16:11 Temperature 96.9 F L 06/23/23 16:11 Pulse Rate 77 06/23/23 16:11 Respiratory Rate 18 06/23/23 16:11 Blood Pressure 136/84 06/23/23 16:11 Pulse Oximetry 98 06/23/23 16:11 Oxygen Delivery Method Room Air 06/23/23 16:11 Discharge Plan Discharge Clinical Impression: Back contusion Patient Disposition: Home w/ Parent or Adult Condition: Stable Instructions: Contusion in Adults (ED) Activity Level: Activity as Tolerated Discharge Diet: Regular Prescriptions: No Action carbamazepine 200 mg tablet 200 mg PO TID Patient Comments: TAKE ONE TABLET BY MOUTH THREE TIMES DAILY hydrocortisone 1 % cream 1 applic topical BID Patient Comments: APPLY TOPICALLY TO AFFECTED AREA(S) 2 TIMES DAILY. lisinopril 10 mg tablet 10 mg PO DAILY Patient Comments: TAKE ONE TABLET BY MOUTH EVERY DAY acetaminophen 650 mg tablet extended release 650 mg PO Q12H PRN Follow Up/Referrals: Frieda Hudson DO [Primary Care Provider] - Stand Alone Forms: [facility] Info Instructions
== END 2023-06-23 20:07 | disposition home or self-care (01) ==
PROVIDERS: Emergency Provider Family Medicine; PCP Family Medicine
DX: S30.0XXA Contusion of lower back and pelvis, initial encounter (principal); W18.39XA Other fall on same level, initial encounter
CPT/HCPCS: 72128; 99284

== ENCOUNTER 2023-07-03 16:49 | Emergency (ER) | payer OTHER, SELFPAY ==
[2023-07-03 17:07] VITALS: BP 156/80; PULSE 64; RESP 16; TEMP 36.7; O2SAT 98; BMI 24.3
--- NOTE | 2023-07-03 18:10 | ED.WOUNDLAC ---
HPI - Wound/Laceration General Date Seen: 07/03/23 Chief Complaint: Laceration/Wound Stated Complaint: L ankle issue Time Seen by Provider: 07/03/23 17:33 Source: patient and family Mode of arrival: ambulatory Limitations: no limitations History of Present Illness HPI narrative: Patient is a 73-year-old gentleman who presents here with an ulcer on his left lateral malleolar region, he has had this from using his AFO, his AFOs scheduled to be fixed next week, his caregiver was worried that it may be infected, he presents here. He does have a history of seeing our wound clinic. No fevers or chills, no numbness tingling is otherwise findings bearing weight walking normally with his AFO. Patient tetanus UTD: Yes Related Data Home Medications Medication Instructions Recorded Confirmed carbamazepine 200 mg tablet 200 mg PO TID 07/15/22 07/03/23 hydrocortisone 1 % topical cream 1 applic topical BID 07/15/22 07/03/23 lisinopril 10 mg tablet 10 mg PO DAILY 07/15/22 07/03/23 acetaminophen 650 mg 650 mg PO Q12H PRN 02/05/23 07/03/23 tablet,extended release rosuvastatin 5 mg tablet 5 mg PO QPM 07/03/23 07/03/23 Allergies Allergy/AdvReac Type Severity Reaction Status Date / Time No Known Drug Allergies Allergy Verified 07/03/23 17:15 Review of Systems Status of ROS: Reports: 6 or more systems reviewed and unremarkable except as noted in History and below PFSH PFS Medical History Seizure disorder ?G40.909 - Epilepsy, unspecified, not intractable, without status epilepticus (ICD-10) Osteoarthritis ?M19.90 - Unspecified osteoarthritis, unspecified site (ICD-10) Cerebral palsy ?G80.9 - Cerebral palsy, unspecified (ICD-10) Social History Smoking Status: Never smoker Do you use any of these nicotine containing products: None How often do you have a drink containing alcohol: never How often do you have six or more drinks on one occasion: Never AUDIT-C Alcohol total score: 0 Non-prescribed substance use: denies use Caffeine: Yes Exam Narrative: Exam Narrative: On examination here he is in no apparent distress he is able to cross over his leg, there is approximate dime-sized area through his the epidermis is dermis on the left lateral malleolar region. Just on the posterior side. Normal pulses, sensations normal, he has a small dressing on there. Telfa and bacitracin applied I would recommend that he get he gets his AFO fixed, and then consider follow-up in the Wound Clinic. Tells me that he will get the wound clinic to come him and I am not aware of the providers will go and make a home visit. Const: Vital Signs, click to edit/add: Vital Signs - 24 hr 07/03/23 17:07 Temperature 98.0 F Pulse Rate [Pulse Oximeter] 64 Respiratory Rate 16 Blood Pressure [Ri ght Upper Arm] 156/80 H Pulse Oximetry 98 Oxygen Delivery Me thod Room Air Course Vital Signs Vital signs: Initial Vital Signs Temperature 98.0 F 07/03/23 17:07 Temperature Source Temporal Artery Scan 07/03/23 17:07 Pulse Rate 64 07/03/23 17:07 Pulse Rhythm Regular 07/03/23 17:07 Pulse Strength 3+ Normal 07/03/23 17:07 Respiratory Rate 16 07/03/23 17:07 Blood Pressure 156/80 H 07/03/23 17:07 Blood Pressure Mean 105 07/03/23 17:07 Blood Pressure Position Sitting 07/03/23 17:07 Pulse Oximetry 98 07/03/23 17:07 Oxygen Delivery Method Room Air 07/03/23 17:07 Vital Signs Temperature 98.0 F 07/03/23 17:07 Pulse Rate 64 07/03/23 17:07 Respiratory Rate 16 07/03/23 17:07 Blood Pressure 156/80 H 07/03/23 17:07 Pulse Oximetry 98 07/03/23 17:07 Oxygen Delivery Method Room Air 07/03/23 17:07 Temperature 98.0 F 07/03/23 17:07 Pulse Rate 64 07/03/23 17:07 Respiratory Rate 16 07/03/23 17:07 Blood Pressure 156/80 H 07/03/23 17:07 Pulse Oximetry 98 07/03/23 17:07 Oxygen Delivery Method Room Air 07/03/23 17:07 Discharge Plan Discharge Clinical Impression: Ulcer of left lower extremity Patient Disposition: Home w/ Parent or Adult Condition: Stable Additional Instructions: Home rest use any dress this and protect this also, no evidence currently of infection, I would really like you go to the wound clinic, for an evaluation. I also let would like you to get your AFO fixed. Activity Level: Light activity Prescriptions: No Action carbamazepine 200 mg tablet 200 mg PO TID Patient Comments: TAKE ONE TABLET BY MOUTH THREE TIMES DAILY hydrocortisone 1 % cream 1 applic topical BID Patient Comments: APPLY TOPICALLY TO AFFECTED AREA(S) 2 TIMES DAILY. lisinopril 10 mg tablet 10 mg PO DAILY Patient Comments: TAKE ONE TABLET BY MOUTH EVERY DAY acetaminophen 650 mg tablet extended release 650 mg PO Q12H PRN rosuvastatin 5 mg tablet 5 mg PO QPM Follow Up/Referrals: Frieda Hudson DO [Primary Care Provider] - Stand Alone Forms: [employer] Info Instructions
[2023-07-03 18:23] VITALS: BP 146/84; PULSE 72; RESP 14; O2SAT 97
== END 2023-07-03 18:25 | disposition home or self-care (01) ==
LOC: ED 18:01
PROVIDERS: Emergency Provider Family Medicine; PCP Family Medicine
DX: L97.329 Non-pressure chronic ulcer of left ankle with unspecified severity (principal)
CPT/HCPCS: 99282; 99283

== ENCOUNTER 2023-07-17 12:54 | Outpatient (CLI) | payer OTHER, SELFPAY | END 2023-07-17 12:55 | disposition home or self-care (01) | LOC: WOUND 12:54 | PROVIDERS: PCP Family Medicine; Visit Provider Surgery | DX: L89.522 Pressure ulcer of left ankle, stage 2 (principal); G80.8 Other cerebral palsy | CPT/HCPCS: 99214 ==

== ENCOUNTER 2023-07-24 13:33 | Outpatient (CLI) | payer OTHER, SELFPAY | END 2023-07-24 13:34 | disposition home or self-care (01) | LOC: WOUND 13:33 | PROVIDERS: PCP Family Medicine; Visit Provider Surgery | DX: L89.522 Pressure ulcer of left ankle, stage 2 (principal); G80.8 Other cerebral palsy | CPT/HCPCS: 97597 ==

== ENCOUNTER 2023-07-31 13:06 | Outpatient (CLI) | payer OTHER, SELFPAY | END 2023-07-31 13:07 | disposition home or self-care (01) | LOC: WOUND 13:06 | PROVIDERS: PCP Family Medicine; Visit Provider Family Medicine | DX: L89.522 Pressure ulcer of left ankle, stage 2 (principal); G80.8 Other cerebral palsy | CPT/HCPCS: 97597 ==

== ENCOUNTER 2023-08-07 13:05 | Outpatient (CLI) | payer OTHER, SELFPAY ==
--- OUTSIDE RECORDS SUMMARY | 2023-08-07 13:07 | XMS_ITS | Clinical Summary ---
Author Name Unknown Organization [facility] Address [address] [place] [address] Care Team Providers Care Sidewalk Repairer Name Role Phone Frieda Hudson Primary Care Physician Encounter Date(s): 08/06/23 - 08/06/[address] [address]- Encounter Diagnosis At high risk for falls(Discharge Diagnosis) - 08/06/23 Left-sided hemiplegic cerebral palsy(Discharge Diagnosis) - 08/06/23 Discharge Disposition: Home or Self Care Attending Physician: Gita Soriano APRN CNP Admitting Physician: Gita Soriano APRN CNP Allergies, Adverse Reactions, Alerts No Known Medication Allergies Discharge Medications acetaminophen (acetaminophen 500 mg oral tablet) Status: Ordered Start Date: 07/14/19 1 tab Oral 2 times a day. carBAMazepine (carBAMazepine 200 mg oral tablet) Status: Ordered Start Date: 07/14/19 1 tabs Oral 3 times a day. ibuprofen (ibuprofen 200 mg oral tablet) Status: Ordered Start Date: 08/06/23 2 tabs Oral 2 times a day as needed for pain, mild or anticipated. lidocaine topical (Aspercrem e Max Strength with Lidocaine Roll-On) Status: Ordered Start Date: 08/06/23 1 apply Topical every day. for pain on knees/feet. lisinopril (lisinopril 10 mg oral tablet) Status: Ordered Start Date: 07/14/19 1 tabs Oral every day. multivitamin (multivitamin a dult, oral tablet) Status: Ordered Start Date: 07/14/19 1 tabs Oral every day. nonformulary medication (Landon cium) Status: Ordered Start Date: 02/26/22 1 tablet Oral 2 times a day. omega-3 polyunsaturated fatt y acids ([place]-3 oral capsule) Status: Ordered Start Date: 07/14/19 1cap PO Qday (500mg cap). Problem List Condition Confirmation Course Effective Dates Status Health St atus Informant At high risk for falls 1 Confirmed Active Left-sided hemiplegic cerebral palsy Confirmed Active 1Added via Discern Expert ADD_HIGHRISKFALL_PROBLEM Rule. Hospital Discharge Diagnosis Left-sided hemiplegic cerebral palsy(Discharge Diagnosis) - 08/06/23 (This Visit) Immunizations Given and Recorded Vaccine Date Status Refusal Reason zoster vaccine, inactivated 02/13/23 Recorded tetanus/diphth/pertuss (Tdap) adult/adol 08/07/22 Recorded tetanus/diphth/pertuss (Tdap) adult/adol 08/20/08 Recorded influenza virus vaccine, inactivated 08/07/22 Carlos rded influenza virus vaccine, inactivated 08/15/21 Carlos rded influenza virus vaccine, inactivated 08/25/20 Carlos rded influenza virus vaccine, inactivated 08/21/19 Carlos rded influenza virus vaccine, inactivated 08/28/18 Carlos rded influenza virus vaccine, inactivated 08/26/17 Carlos rded influenza virus vaccine, inactivated 08/13/16 Carlos rded influenza virus vaccine, inactivated 08/11/15 Carlos rded influenza virus vaccine, inactivated 08/10/14 Carlos rded influenza virus vaccine, inactivated 08/05/13 Carlos rded influenza virus vaccine, inactivated 08/08/12 Carlos rded influenza virus vaccine, inactivated 07/18/11 Carlos rded influenza virus vaccine, inactivated 07/13/10 Carlos rded influenza virus vaccine, inactivated 07/14/09 Carlos rded influenza virus vaccine, inactivated 08/20/08 Carlos rded influenza virus vaccine, inactivated 08/27/07 Carlos rded influenza virus vaccine, inactivated 08/20/06 Carlos rded influenza virus vaccine, inactivated 10/20/03 Carlos rded SARS-CoV-2 (COVID-19) mRNA-1273 vaccine 12/28/20 R ecorded SARS-CoV-2 (COVID-19) mRNA-1273 vaccine 11/30/20 R ecorded pneumococcal 23-polyvalent vaccine 12/06/16 Record ed pneumococcal 13-valent conjugate vaccine 08/11/15 Recorded zoster vaccine live 08/08/12 Recorded Vital Signs Most recent to oldest [Reference Range]: 1 Weight Measured 104 kg (08/06/23 1:50 PM) Weight Dosing 104 kg (08/06/23 1:50 PM) Pain Present No actual or suspect ed pain (08/06/23 1:52 PM) Social History Social History Type Response Tobacco Never (less than 100 in lifetime) Sex Treatment Plan Future Appointments Appointment Date:08/04/2024 02:30:00 PM Scheduled Provider:Gita Soriano APRN CNP Location:[facility] - Clinic Appointment Type:PM and R - Standard Patient Care team information Personnel Name: Frieda Hudson DO Address: Address: [address] [address]
== END 2023-08-07 13:06 | disposition home or self-care (01) ==
LOC: WOUND 13:05
PROVIDERS: PCP Family Medicine; Visit Provider Surgery
DX: L89.522 Pressure ulcer of left ankle, stage 2 (principal); G80.8 Other cerebral palsy
CPT/HCPCS: 99212

== ENCOUNTER 2023-08-14 13:09 | Outpatient (CLI) | payer OTHER, SELFPAY | END 2023-08-14 13:10 | disposition home or self-care (01) | LOC: WOUND 13:09 | PROVIDERS: PCP Family Medicine; Visit Provider Surgery | DX: L89.522 Pressure ulcer of left ankle, stage 2 (principal) | CPT/HCPCS: 99212 ==

== ENCOUNTER 2023-08-21 13:07 | Outpatient (CLI) | payer OTHER, SELFPAY | END 2023-08-21 13:08 | disposition home or self-care (01) | LOC: WOUND 13:07 | PROVIDERS: PCP Family Medicine; Visit Provider Surgery | DX: L89.522 Pressure ulcer of left ankle, stage 2 (principal); G80.8 Other cerebral palsy | CPT/HCPCS: 99213 ==

== ENCOUNTER 2023-11-09 00:11 | Outpatient (CLI) | payer OTHER, SELFPAY | END 2023-11-09 00:12 | disposition home or self-care (01) | LOC: AMB 11-11 09:55 | PROVIDERS: PCP Family Medicine; Visit Provider Internal Medicine | DX: R53.1 Weakness (principal) | CPT/HCPCS: A0998 ==

== ENCOUNTER 2023-11-12 03:05 | Outpatient (CLI) | payer OTHER, SELFPAY ==
--- OUTSIDE RECORDS SUMMARY | 2023-11-15 10:55 | XMS_ITS | Clinical Summary ---
Author Name Unknown Organization [facility] Address [place], [place] [address] Care Team Providers Care Odd Piece Checker Name Role Phone Aaron Verdin DPM Unavailable Frieda Hudson DO Primary Care Provider [phone] Allergies No known active allergies Medications Medication Sig Dispensed Refills Start Date End Date Status multivitamin (MVI) tablet Take 1 tablet by mouth once daily. 0 5 Active mupirocin 2% topical (BACTROBAN OINTMENT) ointmentIndications :Impetigo Apply topically to affected area(s) 3 times daily. May switch to cream if covered better by insurance 30 g 2 7 Active triamcinolone (ARISTOCORT; KENALOG) 0.1 % creamIndications:De rmatitis Apply topically to affected area(s) 2 times daily. 60 g 0 8 Active ibuprofen (ADVIL; MOTRIN) 200 mg tabletIndications:P rimary osteoarthritis of right knee Take 1 tablet by mouth 2 times daily if needed. 0 9 Active [place]-3 Fatty Acids (FISH OIL) 500 mg capsuleIndications: Primary osteoarthritis of right knee Take 1-2 capsules by mouth once daily. 0 9 Active glucosamine up 2KCl-chondroit (GLUCOSAMINE-CHONDR OITIN DS) 500-400 mg tabIndications:Prim jc osteoarthritis of right knee Take 1-2 by mouth daily 0 9 Active miscellaneous medical supply miscIndications:Con genital monoplegia (HC) As directed. OK to repair current AFO 1 Each 0 9 Active durable medical equipment (DME)Indications:Pl robson fasciitis PLANTAR FASCIITIS NIGHT SPLINT, LARGE, RE: [phone] 1 Each 0 1 Active hydrocortisone 1 % creamIndications:De rmatitis Apply topically to affected area(s) 2 times daily. 14.2 g 0 1 Active acetaminophen SR (TYLENOL ARTHRITIS) 650 mg Extended-Release tablet Take 1 Tablet (650 mg) by mouth every 8 hours if needed (pain). Max acetaminophen dose: 4000mg in 24 hrs. 0 3 Active calcium carbonate (CALTRATE) 600 mg calcium (1,500 mg) tablet Take 1 Tablet (600 mg) by mouth once daily with a meal. 180 Tablet 3 3 Active lisinopriL (PRINIVIL; ZESTRIL) 10 mg tabletIndications:E ssential hypertension Take 1 Tablet (10 mg) by mouth once daily. 90 Tablet 3 3 Active carBAMazepine (TEGRETOL) 200 mg tabletIndications:E pilepsy associated with specific stimuli (HC) Take 1 Tablet (200 mg) by mouth three times daily. 270 Tablet 3 3 Active rosuvastatin (CRESTOR) 5 mg tabletIndications:M ixed hyperlipidemia Take 1 Tablet (5 mg) by mouth at bedtime. 90 Tablet 3 3 Active durable medical equipment (DME)Indications:Co ngenital monoplegia (HC) Scooter 1 Each 0 3 Active durable medical equipment (DME)Indications:Ce rebral palsy, hemiplegic (HC),Varus deformity, not elsewhere classified, left ankle,Bilateral primary osteoarthritis of knee 4 wheeled motorized scooter 1 Each 0 3 Active nystatin powder (MYCOSTATIN) powderIndications:T inea cruris Apply 1 Strip topically to affected area(s) 3 times daily if needed (tinea cruris). 60 g 1 3 Active oxyCODONE-acetamino phen (Percocet) 5-325 mg per tabletIndications:A cute pain of right knee,Osteoarthritis of right knee, unspecified osteoarthritis type Take 1 Tablet by mouth every 4 hours if needed for Pain. Max acetaminophen dose: 4000mg in 24 hrs. 20 Tablet 0 4 Active traMADoL (ULTRAM) 50 mg tabletIndications:O steoarthritis of right knee, unspecified osteoarthritis type,Acute pain of right knee Take 1 Tablet (50 mg) by mouth two times daily. 30 Tablet 0 4 Active ketorolac 0.5 % ophthalmic (ACULAR) solution Place 1 Drop into the eye(s) four times daily. 0 3 Active ofloxacin 0.3 % ophthalmic (OCUFLOX) 0.3 % ophthalmic solution Place 1 Drop into the eye(s) four times daily. 0 3 Active prednisoLONE acetate 1% ophthalmic (ECONOPRED PLUS, PRED FORTE, OMNIPRED) suspension Place 1 Drop into the eye(s) four times daily. 0 3 Active lidocaine 5 % topical patchIndications:Os teoarthritis of right knee, unspecified osteoarthritis type Apply on dry, clean, hairless skin. Apply 1 patch to painful area of skin for up to to 12 hours within 24 hour period. 30 Patch 0 4 Active oxyCODONE-acetamino phen (Percocet) 5-325 mg per tabletIndications:A cute pain of right knee,Osteoarthritis of right knee, unspecified osteoarthritis type Take 1 Tablet by mouth every 4 hours if needed for Pain. Max acetaminophen dose: 4000mg in 24 hrs. 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 in [place] Pure hypercholesterolemia 07/18/2011 cerebral palsy Overview: Affecting whole left side Essential hypertension Resolved Problems Problem Noted Date Diagnosed Date Resolved Date Infantile cerebral palsy, unspecified 03/06/2007 09/10/2008 Other convulsions 03/06/2007 09/10/2008 Epilepsy 08/11/2015 Encounters Date Type Department Care Team Description 11/12/2023 12:55 PM SUPERVISORY CLERK Office Visit [facility] [address] [place] [address] Crystal Varela PA Knee Pain/problem (severe right knee pain) 11/12/2023 Travel 11/11/2023 Telephone [facility] [address] [place] [address] Remyqra Frieda Emily, DO Refill Request 11/05/2023 Refill [facility] [address] [place] [address] Shaqra Frieda Emiyl, DO Refill Request (Oxycodone-Acetaminophe n ) 11/01/2023 Telephone [facility] [address] [place] [address] Ashley Moore, DO Results 10/31/2023 Telephone [facility] [address] [place] [address] Tristan Frieda Emily, DO Questions 10/30/2023 4:30 PM SUPERVISORY CLERK Ancillary Procedure [facility] [address] [place] [address] 10/30/2023 3:30 PM SUPERVISORY CLERK Office Visit [facility] [address] [place] [address] Ashley Moore, DO Knee Pain/problem (knee injections 10/14/23- Patient is in more pain) 10/30/2023 Travel 10/30/2023 Telephone [facility] [address] [place] [address] Silvio Gutierrez MD Health Maintenance Update 10/22/2023 Nurse Triage [facility] [address] [place] [address] Silvio Gutierrez MD Knee Pain/problem 10/22/2023 Telephone [facility] [address] [place] [address] Silvio Gutierrez MD Questions 10/14/2023 9:20 AM SUPERVISORY CLERK Office Visit [facility] [address] [place] [address] Silvio Gutierrez MD Musculoskeletal Problem (Follow up bilateral knee pain wanting injections today) 10/14/2023 Travel 09/23/2023 11:25 AM SUPERVISORY CLERK Office Visit [facility] [address] [place] [address] Frieda Hudson, DO DME Supply (Patient would like discuss getting a scooter for mobility issues) 09/23/2023 Travel 09/02/2023 11:00 AM CDT Office Visit [facility] [address] [place] [address] Silvio Gutierrez MD Musculoskeletal Problem (Follow up bilateral knee pain, wanting to discuss injections) 09/02/2023 Travel 08/26/2023 Telephone [facility] [address] [place] [address] Silvio Gutierrez MD Appointment Request 08/23/2023 Telephone [facility] [address] [place] [address] Frieda Hudson DO Verbal orders 08/22/2023 Telephone [facility] [address] [place] [address] Frieda Hudson EmilyDO Referral (Botox Injection in Foot) from Last 3 Months Immunizations Name Administration Dates Next Due COVID-19 Vaccine Spikevax (M oderna 50mcg/0.5mL) 12YO+ [id number] Formula PF 09/23/2023 COVID-19 vaccine (Pfizer-Bio NTech 30mcg/0.3mL) 12YO+ BIVALENT PF, MDV 08/07/2022 COVID-19 vaccine (Pfizer-Bio NTech 30mcg/0.3mL) 12YO+ SOHEILA-SUCROSE PF, MDV 06/11/2022 Influenza A (H1N1), Inactiva husam (Age >=3 Years) 10/24/2009 Influenza, High-dose Inactivated 08/13/2016,10/0 06/2015 Influenza, High-dose Quadriv alent Inactivated 08/27/2023 Influenza, IIV3 (Age >=3 years) 08/05/20 13,08/08/2012,07/18/2011,2009,07/14/2009,08/20/2008,08/27/2007,1 Influenza, IIV4 08/10/2014 Influenza, Inactivated AIIV4 (Age 65+ Years) Preserv Free 08/07/2022,08/15/2021 Influenza, Inactivated IIV3 (Age 65+ Years) Preserv Free 08/28/2018,08/26/2017 Pneumococcal Poly,23-Valent (Pneumovax) 12/06/2016 Pneumococcal conj 13-Valent (Prevnar 13) 08/11/2015 Td (Age >=7 Years) 10/01/1997 Tdap 08/07/2022,08/20/2008 Zoster (Shingrix-RZV, recombinant) 02/13/2023 Zoster (Zostavax-ZVL, live) 08/08/2012 Family History Medical History Relation Name Comments Other Father sarcoidosis Diabetes Maternal Aunt Cancer Mother multiple myelom a Heart Disease Other none certain Relation Name Status Comments Father Maternal Aunt Mother Other Social History Tobacco Use Types Packs/Day Years Used Date Smoking Tobacco: Never Passive Smoke Exposure: Never Smokeless Tobacco: Never Tobacco Cessation:Counseling Given: Yes Alcohol Use Standard Drinks/Week Comments No 0 (1 standard drink = 0.6 oz pur e alcohol) PHQ-2 Answer Date Recorded PHQ-2 TOTAL SCORE 1 02/13/2023 Social Connections Answer Date Recorded Frequency of Communication with Friends and Fami ly 0 10/30/2023 Financial Resource Strain Answer Date R ecorded Difficulty of Paying Living Expenses 3 10/30/2023 Difficulty of Paying Living Expenses Not on file 10/30/2023 Food Insecurity Answer Date Recorded Worried About Running Out of Food in the Last Ye ar 1 10/30/2023 Transportation Needs Answer Date Record ed Lack of Transportation (Medical) 1 10/30/2023 Housing Stability Answer Date Recorded Unable to Pay for Housing in the Last Year 1 10/30/2023 Sex and Gender Information Value Date Recorded Sex Assigned at Not on file Gender Identity Not on file Sexual Orientation Not on file Obstetrics History Last Filed Vital Signs Vital Sign Reading Time Taken Comments Blood Pressure 116/79 11/12/2023 12:43 PM SUPERVISORY CLERK Pulse 92 11/12/2023 12:43 PM SUPERVISORY CLERK Temperature 36.8 ??C (98.3 ??F) 10/14/2023 9:15 AM CS T Respiratory Rate 12 06/15/2017 8:01 AM CDT Oxygen Saturation 96% 11/12/2023 12:43 PM SUPERVISORY CLERK Inhaled Oxygen Concentration - - Weight 103 kg (227 lb) 11/12/2023 12:43 PM SUPERVISORY CLERK Height 167.6 cm (5' 5.98) 02/13/2023 1:39 PM CD T Body Mass Index 36.66 02/13/2023 1:39 PM CDT Plan of Treatment Upcoming Encounters Date Type Department Care Team (Late st Contact Info) Description 11/27/2023 1:40 PM SUPERVISORY CLERK Office Visit [facility] [address] [place] [address] Silvio Gutierrez MD [address] [place] [address] 12/18/2023 2:00 PM SUPERVISORY CLERK Office Visit [facility] [address] [place] [address] Aaron Verdin DPM [address] [place] [address] 12/27/2023 3:00 PM SUPERVISORY CLERK Office Visit [facility] [address] [place] [address] Frieda Hudson DO [address] [place] [address] Health Maintenance Due Date Last Done Comments Colonoscopy through age 75 1995 Zoster (shingles) series for age 50+ (3 of 3) 04/10/2023 02/13/2023, 08/08/2012 Medicare Wellness for age 65+ 02/13/2024, 02/12/2022, 12/21/2020, Additional history exists BMI (ht and wt on same day) for age 18+ 02/14/2024 02/13/2023, 10/26/2022, 11/16/2019, Additional history exists Depression screening for age 12+ 02/14/2024 02/13/2023, 02/13/2022, 02/12/2022, Additional history exists Lipids for age 45-75 05/01/2028 05/01/2023, 02/13/2023, 02/12/2022, Additional history exists Tetanus booster 08/07/2032 08/07/2022, 08/04, 10/01/1997 Hepatitis C screening for ag e 18-79 Completed 08/11/2015 Pneumococcal series for age 65+ Completed 7, 08/11/2015 Tdap Completed 08/07/2022, 08/20/2008 Influenza for age 65+ Completed 08/27/2023 , 08/07/2022, 08/15/2021, Additional history exists COVID-19 vaccine series Completed 09/23/20, 08/07/2022, 06/11/2022, Additional history exists Procedures Procedure Name Priority Date/Time Associated Diagnosis Comments CBC WITH AUTO DIFFERENTIAL Routine 11/12/2023 1:17 PM SUPERVISORY CLERK Osteoarthritis of right knee, unspecified osteoarthritis type Acute pain of right knee C-REACTIVE PROTEIN STAT 11/12/2023 1: 17 PM SUPERVISORY CLERK Osteoarthritis of right knee, unspecified osteoarthritis type Acute pain of right knee CBC WITH AUTO DIFFERENTIAL Routine 11/12/2023 1:17 PM SUPERVISORY CLERK Osteoarthritis of right knee, unspecified osteoarthritis type Acute pain of right knee CT KNEE RIGHT WO JESSY 10/30/2023 4:44 PM SUPERVISORY CLERK Acute pain of right knee Osteoarthritis of right knee, unspecified osteoarthritis type from Last 3 Months Results * (ABNORMAL) CBC WITH AUTO DIFFERENTIAL (11/12/2023 1:17 PM SUPERVISORY CLERK) [facility] WHITE BLOOD COUNT 6.7 4.5 - 11.0 thou/cu mm 11/12/2023 1:24 PM SUPERVISORY CLERK [facility] RED BLOOD COUNT 4.08(L) 4.30 - 5.90 mil/cu mm 11/12/2023 1:24 PM [facility] HEMOGLOBIN 13.1(L) 13.5 - 17.5 g/dL 11/12/2023 1:24 PM [facility] HEMATOCRIT 38.5 37.0 - 53.0 % 11/12/2023 1:24 PM [facility] MCV 94 80 - 100 fL 11/12/2023 1:24 PM [facility] MCH 32.1 26.0 - 34.0 pg 11/12/2023 1:24 PM [facility] MCHC 34.0 32.0 - 36.0 g/dL 11/12/2023 1:24 PM [facility] RDW 13.0 11.5 - 15.5 % 11/12/2023 1:24 PM [facility] PLATELET COUNT 195 140 - 440 thou/cu mm 11/12/2023 1:24 PM [facility] MPV 10.1 6.5 - 11.0 fL 11/12/2023 1:24 PM [facility] % NEUT 77.0 % 11/12/2023 1:24 PM [facility] % LYMPH 14.5 % 11/12/2023 1:24 PM [facility] % MONO 7.7 % 11/12/2023 1:24 PM [facility] % EOS 0.4 % 11/12/2023 1:24 PM [facility] % BASO 0.4 % 11/12/2023 1:24 PM [facility] ABSOLUTE NEUTROPHILS 5.2 1.7 - 7.0 thou/cu mm 11/12/2023 1:24 PM [facility] ABSOLUTE LYMPHOCYTES 1.0 0.9 - 2.9 thou/cu mm 11/12/2023 1:24 PM [facility] ABSOLUTE MONOCYTES 0.5 <0.9 thou/cu mm 11/12/2023 1:24 PM [facility] ABSOLUTE EOSINOPHILS 0.0 <0.5 thou/cu mm 11/12/2023 1:24 PM [facility] ABSOLUTE BASOPHILS 0.0 <0.3 thou/cu mm 11/12/2023 1:24 PM SUPERVISORY CLERK [facility] Blood BLOOD SPECIMEN / Unknown Venipuncture / Unknown 11/12/2023 1:17 PM SUPERVISORY CLERK 11/12/2023 1:18 PM SUPERVISORY CLERK Crystal KIM HEMATOLOGY [facility] [address] [place] [address], * (ABNORMAL) C-REACTIVE PROTEIN (11/12/2023 1:17 PM SUPERVISORY CLERK) C-REACTIVE PROTEIN 1.5(H) <0.5 mg/dL 11/12/2023 9:52 PM SUPERVISORY CLERK [facility] Blood BLOOD SPECIMEN / Unknown Venipuncture / Unknown 11/12/2023 1:17 PM SUPERVISORY CLERK 11/12/2023 1:18 PM SUPERVISORY CLERK Crystal KIM CHEMISTRY Performing Organization Address City/[facility] Co de Phone Number [facility] [address] [place] [address], * CT KNEE RIGHT WO (10/30/2023 4:44 PM SUPERVISORY CLERK) Anatomical Region Laterality Modality KNEE R Computed Tomogra phy 10/31/2023 8:01 AM SUPERVISORY CLERK Impressions 10/31/2023 8:01 AM SUPERVISORY CLERK Tricompartmental osteoarthritis severe in the patellofemoral compartment. No acute infectious or inflammatory findings suggested. Please note that all CT scans at this facility use dose modulation, iterative reconstruction, and/or weight-based dosing when appropriate to reduce radiation dose to as low as reasonably achievable. Dictated by Silvio Garland MD @ 10/31/2023 8:01:48 AM (Electronically Signed) Narrative 10/31/2023 8:01 AM SUPERVISORY CLERK For Patients: ??As a result of the Century Cures Act, medical imaging exams and procedure reports are released immediately into your electronic medical record. ??You may view this report before your referring provider. ??If you have questions, please contact your health care provider. INDICATION: Acute increasing pain after knee injection. COMPARISON: Plain film 24 June 2023. TECHNIQUE: Noncontrast images right knee with axial, coronal and sagittal reformats. FINDINGS: Tricompartmental osteoarthritis is end-stage in the distorted and remodeled patellofemoral compartment. Serrated sclerotic irregular articular margin of patella and trochlea. Slight lateral subluxation and tilt of the patella relative to the moderately flattened trochlear groove. Chondrocalcinosis of menisci. Small bland joint effusion. No obvious erosions. No periarticular inflammation appreciated. Diffuse atherosclerotic vascular calcifications. Procedure Note Silvio Garland MD - 10/31/2023 For Patients: As a result of the Cures Act, medical imagingexams and procedure reports are released immediately into your electronicmedical record. You may view this report before your referring provider.If you have questions, please contact your health care provider. INDICATION: Acute increasing pain after knee injection. COMPARISON: Plain film 24 June 2023. TECHNIQUE: Noncontrast images right knee with axial, coronal and sagittalreformats. FINDINGS: Tricompartmental osteoarthritis is end-stage in the distorted andremodeled patellofemoral compartment. Serrated sclerotic irregulararticular margin of patella and trochlea. Slight lateral subluxation andtilt of the patella relative to the moderately flattened trochlear groove.Chondrocalcinosis of menisci. Small bland joint effusion. No obviouserosions. No periarticular inflammation appreciated. Diffuseatherosclerotic vascular calcifications. IMPRESSION: Tricompartmental osteoarthritis severe in the patellofemoral compartment.No acute infectious or inflammatory findings suggested. Please note that all CT scans at this facility use dose modulation,iterative reconstruction, and/or weight-based dosing when appropriate toreduce radiation dose to as low as reasonably achievable. Dictated by Silvio Garland MD @ 10/31/2023 8:01:48 AM (Electronically Signed) Ashley Moore DO CT from Last 3 Months Advance Directives Documents on File Type Date Recorded Patient Senior Cost Estimator Expl anation POLST 12/11/2022 2:13 PM POLST, 01/2023 Healthcare Directive 09/29/2008 HEALTH CARE DIRECTIVE, [facility], 09/29/2008 Healthcare Directive 09/29/2008 HEALTH CARE DIRECTIVE, [facility], 09/29/08 Care Teams Odd Piece Checker Relationship Specialty Start Date End Date Frieda Hudson DO [address] [address] PCP - General Family Practice 08/07/22 Aaron Verdin DPM Podiatry 08/05/13
== END 2023-11-12 03:06 | disposition home or self-care (01) ==
LOC: AMB 11-15 10:51
PROVIDERS: PCP Family Medicine; Visit Provider Student in an Organized Health Care Education/Training Program
DX: R53.1 Weakness (principal)
CPT/HCPCS: A0998

== ENCOUNTER 2024-01-15 18:55 | Outpatient (CLI) | payer OTHER, SELFPAY | END 2024-01-15 18:56 | disposition home or self-care (01) | LOC: AMB 01-17 11:52 | PROVIDERS: PCP Family Medicine; Visit Provider Emergency Medicine | DX: R53.1 Weakness (principal) ==

== ENCOUNTER 2024-02-20 18:51 | Outpatient (CLI) | payer OTHER, SELFPAY ==
--- OUTSIDE RECORDS SUMMARY | 2024-02-23 13:21 | XMS_ITS | Clinical Summary ---
Author Name Unknown Organization [facility] Address [place], [place] [address] Care Team Providers Care Chief Analytics Officer Name Role Phone Aaron Verdin DPM Unavailable [phone] Frieda Hudson DO Primary Care Provider [phone] Allergies No known active allergies Medications Medication Sig Dispensed Refills Start Date End Date Status multivitamin (MVI) tablet Take 1 tablet by mouth once daily. 0 5 Active mupirocin 2% topical (BACTROBAN OINTMENT) ointmentIndication s:Impetigo Apply topically to affected area(s) 3 times daily. May switch to cream if covered better by insurance 30 g 2 7 Active triamcinolone (ARISTOCORT; KENALOG) 0.1 % creamIndications:D ermatitis Apply topically to affected area(s) 2 times daily. 60 g 8 Active ibuprofen (ADVIL; MOTRIN) 200 mg tabletIndications: Primary osteoarthritis of right knee Take 1 tablet by mouth 2 times daily if needed. 0 9 Active Troy-3 Fatty Acids (FISH OIL) 500 mg capsuleIndications :Primary osteoarthritis of right knee Take 1-2 capsules by mouth once daily. 0 9 Active glucosamine up 2KCl-chondroit (GLUCOSAMINE-CHOND ROITIN DS) 500-400 mg tabIndications:Meena camden osteoarthritis of right knee Take 1-2 by mouth daily 0 9 Active miscellaneous medical supply miscIndications:Co ngenital monoplegia (HC) As directed. OK to repair current AFO 1 Each 9 Active durable medical equipment (DME)Indications:P lantar fasciitis PLANTAR FASCIITIS NIGHT SPLINT, LARGE, RE: [phone] 1 Each 1 Active hydrocortisone 1 % creamIndications:D ermatitis Apply topically to affected area(s) 2 times daily. 14.2 g 1 Active acetaminophen SR (TYLENOL ARTHRITIS) 650 mg Extended-Release tablet Take 1 Tablet (650 mg) by mouth every 8 hours if needed (pain). Max acetaminophen dose: 4000mg in 24 hrs. 0 3 Active calcium carbonate (CALTRATE) 600 mg calcium (1,500 mg) tablet Take 1 Tablet (600 mg) by mouth once daily with a meal. 180 Tablet 3 3 Active nystatin powder (MYCOSTATIN) powderIndications: Tinea cruris Apply 1 Strip topically to affected area(s) 3 times daily if needed (tinea cruris). 60 g 1 3 Active oxyCODONE-acetamin ophen (Percocet) 5-325 mg per tabletIndications: Acute pain of right knee,Osteoarthriti s of right knee, unspecified osteoarthritis type Take 1 Tablet by mouth every 4 hours if needed for Pain. Max acetaminophen dose: 4000mg in 24 hrs. 20 Tablet 4 Active traMADoL (ULTRAM) 50 mg tabletIndications: Osteoarthritis of right knee, unspecified osteoarthritis type,Acute pain of right knee Take 1 Tablet (50 mg) by mouth two times daily. 30 Tablet 4 Active ketorolac 0.5 % ophthalmic (ACULAR) solution Place 1 Drop into the eye(s) four times daily. 3 Active ofloxacin 0.3 % ophthalmic (OCUFLOX) 0.3 % ophthalmic solution Place 1 Drop into the eye(s) four times daily. 3 Active prednisoLONE acetate 1% ophthalmic (ECONOPRED PLUS, PRED FORTE, OMNIPRED) suspension Place 1 Drop into the eye(s) four times daily. 3 Active lidocaine 5 % topical patchIndications:O steoarthritis of right knee, unspecified osteoarthritis type Apply on dry, clean, hairless skin. Apply 1 patch to painful area of skin for up to to 12 hours within 24 hour period. 30 Patch 4 Active Chair LiftIndications:Pr imary osteoarthritis of right knee,Chronic pain of right knee,Chronic pain of left knee,Congenital monoplegia (HC),Chronic pain of right ankle,Effusion of right knee joint DME lift chair / medical recliner, For home use. 99 months. 1 Each 4 Active nystatin (MYCOSTATIN) 100,000 unit/gram topical creamIndications:I ntertrigo Apply topically to affected area(s) two times daily. 30 g 5 4 Active durable medical equipment (DME)Indications:C erebral palsy, hemiplegic (HC),Varus deformity, not elsewhere classified, left ankle,Bilateral primary osteoarthritis of knee Motorized wheelchair 1 Each 4 Active rosuvastatin (CRESTOR) 5 mg tabletIndications: Mixed hyperlipidemia TAKE 1 TABLET (5 MG) BY MOUTH AT BEDTIME. 90 Tablet 2 4 Active carBAMazepine (TEGRETOL) 200 mg tabletIndications: Epilepsy associated with specific stimuli (HC) TAKE 1 TABLET (200 MG) BY MOUTH THREE TIMES DAILY. 270 Tablet 4 Active lisinopriL (PRINIVIL; ZESTRIL) 10 mg tabletIndications: Essential hypertension TAKE 1 TABLET (10 MG) BY MOUTH ONCE DAILY. 90 Tablet 4 Active lisinopriL (PRINIVIL; ZESTRIL) 10 mg tabletIndications: Essential hypertension Take 1 Tablet (10 mg) by mouth once daily. 90 Tablet 3 3 024 Discontinued carBAMazepine (TEGRETOL) 200 mg tabletIndications: Epilepsy associated with specific stimuli (HC) Take 1 Tablet (200 mg) by mouth three times daily. 270 Tablet 3 3 024 Discontinued rosuvastatin (CRESTOR) 5 mg tabletIndications: Mixed hyperlipidemia Take 1 Tablet (5 mg) by mouth at bedtime. 90 Tablet 3 3 024 Discontinued amoxicillin (AMOXIL) 875 mg tabletIndications: Acute recurrent maxillary sinusitis Take 1 Tablet (875 mg) by mouth two times daily for 10 days. 20 Tablet 4 024 Active Problems Problem Noted Date Diagnosed Date Ulcer of left lower extremity, unspecified ulcer stage 09/23/2023 Varus deformity, not elsewhere classified, left ankle 02/12/2022 Epilepsy associated with specific stimuli 2014 Overview: Last seizure 1979 in [place] Pure hypercholesterolemia 07/18/2011 cerebral palsy Overview: Affecting whole left side Essential hypertension Resolved Problems Problem Noted Date Diagnosed Date Resolved Date Infantile cerebral palsy, unspecified 03/06/2007 09/10/2008 Other convulsions 03/06/2007 09/10/2008 Epilepsy 08/11/2015 Encounters Date Type Department Care Team Description 02/12/2024 2:00 PM CDT Office Visit [address] [address] Tim Modi MD Sinus Problem (1 month of symptoms - congestion and cough) 02/12/2024 Travel 02/06/[address] [address] Tristan Frieda Emily, DO Refill Request (Rosuvastatin, Carbamazepine, Lisinopril) 01/29/[address] [address] Tristan Frieda Emily, DO Questions (WHEELCHAIR ) 01/22/[address] [address] Silvio Gutierrez MD Prior Authorization (DENIAL - DESTRUCTION NEUROLYTIC AGT GENICULAR NERVE W IMG) 01/22/[address] [address] Silvio Gutierrez MD Form ([facility] is requesting a peer to peer before procedure on 01/24/24) 01/13/[address] [address] Frieda Hudson, DO DME Supply 01/10/[address] [place] [address] Kodira, Frieda Emily, DO Outside Order (Electric wheelchair) 01/08/2024 1:40 PM TRIAL LAWYER Office Visit [facility] [address] [place] [address] Silvio Gutierrez MD Musculoskeletal Problem (Follow up knee pain) 01/08/2024 Travel 01/01/[address] [address] Shaqra, Frieda Emily, DO Orders (power wheelchair) 12/27/2023 3:00 PM TRIAL LAWYER Office Visit [address] [address] Remyqra, Frieda Emily, DO Neurologic Problem (Numbness in R fingers x1 month - constant ); ACC Order Request (Pt would like face to face completed to discuss getting an electric wheel chair - pride power chair ) 12/27/2023 Travel 12/18/2023 2:00 PM TRIAL LAWYER Office Visit [address] [address] Aaron Verdin DPM Follow Up (Right sinus tarsi-injection ) 12/18/2023 Travel 12/06/[address] [address] Remyq, Frieda Emily, DO wheel chair order 11/28/[address] [address] Silvio Gutierrez MD DME Supply (electric chair ) 11/27/2023 1:40 PM TRIAL LAWYER Office Visit [address] [address] Silvio Gutierrez MD Musculoskeletal Problem (Follow up bilateral knee pain ) 11/27/2023 Travel from Last 3 Months Immunizations Name Administration Dates Next Due COVID-19 Vaccine Spikevax (M oderna 50mcg/0.5mL) 12YO+ [id number] Formula PF 09/23/2023 COVID-19 vaccine ([employer] NTech 30mcg/0.3mL) 12YO+ BIVALENT PF, MDV 08/07/2022 COVID-19 vaccine ([employer] NTech 30mcg/0.3mL) 12YO+ SOHEILA-SUCROSE PF, MDV 06/11/2022 Influenza A (H1N1), Inactiva husam (Age >=3 Years) 10/24/2009 Influenza, High-dose Inactivated 08/13/2016,06/2015 Influenza, High-dose Quadriv alent Inactivated 08/27/2023 Influenza, [...] Sign Reading Time Taken Comments Blood Pressure 103/69 02/12/2024 1:52 PM CDT Pulse 62 02/12/2024 1:52 PM CDT Temperature 36.4 ??C (97.5 ??F) 02/12/2024 1:52 PM CD T Respiratory Rate 12 06/15/2017 8:01 AM CDT Oxygen Saturation 95% 02/12/2024 1:52 PM CDT Inhaled Oxygen Concentration - - Weight 102.1 kg (225 lb) 12/27/2023 3:14 PM TRIAL LAWYER Height 167.6 cm (5' 5.98) 02/13/2023 1:39 PM CD T Body Mass Index 36.33 02/13/2023 1:39 PM CDT Plan of Treatment Upcoming Encounters Date Type Department Care Team (Late st Contact Info) Description 03/03/2024 8:05 AM CDT Office Visit [facility] [address] [place] [address] Frieda Hudson, DO [address] [place] [address] 03/16/2024 10:40 AM CDT Office Visit [facility] [address] [place] [address] Silvio Gutierrez MD [address] [place] [address] 04/02/2024 12:55 PM CDT Office Visit [facility] [address] [place] [address] Frieda Hudson DO [address] [place] [address] Health Maintenance Due Date Last Done Comments Colonoscopy through age 75 1995 Zoster (shingles) series for age 50+ (3 of 3) 04/10/2023 02/13/2023, 08/08/2012 BMI (ht and wt on same day) for age 18+ 02/14/2024 02/13/2023, 10/26/2022, 11/16/2019, Additional history exists Depression screening for age 12+ 02/14/2024 02/13/2023, 02/13/2022, 02/12/2022, Additional history exists Medicare Wellness for age 65+ 02/14/2024, 02/12/2022, 12/21/2020, Additional history exists Influenza for age 65+ 07/05/2024 08/27/2023 , 08/07/2022, 08/15/2021, Additional history exists Lipids for age 45-75 05/01/2028 05/01/2023, 02/13/2023, 02/12/2022, Additional history exists Tetanus booster 08/07/2032 08/07/2022, 08/04, 10/01/1997 Hepatitis C screening for ag e 18-79 Completed 08/11/2015 Pneumococcal series for age 65+ Completed , 08/11/2015 Tdap Completed 08/07/2022, 08/20/2008 COVID-19 vaccine series Completed 12/10/19, 09/23/2023, 08/07/2022, Additional history exists Procedures Procedure Name Priority Date/Time Associated Diagnosis Comments BODY FLUID CELL COUNT/DIF Routine 11/27/2023 2:55 PM TRIAL LAWYER Chronic pain of right knee Effusion of right knee joint BODY FLUID CULTURE,STAIN (AEROBIC) Routine 11/27/2023 2:55 PM TRIAL LAWYER Chronic pain of right knee Effusion of right knee joint CRYSTAL ID BODY FLUID NO URINE Routine 11/27/2023 2:55 PM TRIAL LAWYER Chronic pain of right knee Effusion of right knee joint LIPID PANEL W REFLEX MEASURED LDL Routine 05/01/2023 3:56 PM CDT Pure hypercholesterolemia ANTI HCV Routine 08/11/2015 3:44 PM CDT Need for hepatitis C screening test from Last 3 Months or Most Recently Relevant to Health Maintenance Results * BODY FLUID CULTURE,STAIN (AEROBIC) (11/27/2023 2:55 PM TRIAL LAWYER) CULTURE No Growth. 12/02/2023 7:54 AM TRIAL LAWYER [facility] GRAM STAIN 1+ PMNs 12/02/2023 7:54 AM TRIAL LAWYER [facility] GRAM STAIN No RBCs 12/02/2023 7:54 AM TRIAL LAWYER [facility] GRAM STAIN No Epithelial cells 12/02/2023 7:54 AM TRIAL LAWYER [facility] GRAM STAIN No organisms seen 12/02/2023 7:54 AM TRIAL LAWYER [facility] Body Fluid SYNOVIAL FLUID SPECIMEN / Unknown Non-Blood / Unknown 11/27/2023 2:55 PM TRIAL LAWYER 11/27/2023 3:02 PM TRIAL LAWYER Silvio Gutierrez MD MICROBIOLOGY [facility] [address] [place] [address], * BODY FLUID CELL COUNT/DIF (11/27/2023 2:55 PM TRIAL LAWYER) BODY FLUID SOURCE Synovial Fluid 11/27/2023 11:00 PM TRIAL LAWYER [facility] Comment:Right Knee BODY FLUID COLOR Blood Tinged 11/27/2023 11:00 PM TRIAL LAWYER [facility] BODY FLUID CLARITY Slightly Cloudy 11/27/2023 11:00 PM TRIAL LAWYER [facility] TOTAL NUCLEATED CELLS, BF 267 /cu mm 11/27/2023 11:00 PM TRIAL LAWYER [facility] RED BLOOD COUNT, BODY FLUID 11,000 /cu mm 11/27/2023 11:00 PM TRIAL LAWYER [facility] % NEUTROPHILS, BODY FLUID 28 % 11/27/2023 11:00 PM TRIAL LAWYER [facility] % LYMPHOCYTES, BODY FLUID 42 % 11/27/2023 11:00 PM TRIAL LAWYER [facility] % MONO/MACRO, BODY FLUID 30 % 11/27/2023 11:00 PM TRIAL LAWYER [facility] Body Fluid SYNOVIAL FLUID SPECIMEN / Unknown Non-Blood / Unknown 11/27/2023 2:55 PM TRIAL LAWYER 11/27/2023 3:03 PM TRIAL LAWYER Silvio Gutierrez MD BODY FLUID [facility] [address] [place] [address], [place] * (ABNORMAL) CRYSTAL ID BODY FLUID NO URINE (11/27/2023 2:55 PM TRIAL LAWYER) MONOSODIUM URATES Extracell ular(A) None Seen, Present, Not Present 11/28/2023 1:13 PM TRIAL LAWYER [facility] CALCIUM PYROPHOSPHATES None Seen None Seen, Present, Not Present 11/28/2023 1:13 PM TRIAL LAWYER [facility] OTHER CRYSTALS 11/28/2023 1:13 PM TRIAL LAWYER [facility] SPECIMEN SOURCE r knee 1:13 PM TRIAL LAWYER [facility] Body Fluid SYNOVIAL FLUID SPECIMEN / Unknown Non-Blood / Unknown 11/27/2023 2:55 PM TRIAL LAWYER 11/27/2023 3:02 PM TRIAL LAWYER Silvio Gutierrez MD BODY FLUID [facility] [address] [place] [address], [place] * (ABNORMAL) LIPID PANEL W REFLEX MEASURED LDL (05/01/2023 3:56 PM CDT) CHOLESTEROL,TOTAL 178 100 - 199 mg/dL 05/02/2023 4:43 PM CDT [facility] Comment: Cholesterol, Total Reference Ranges Desirable <200 mg/dL Borderline 200-239 mg/dL High >=240 mg/dL TRIGLYCERIDES 172(H) <150 mg/dL 05/02/2023 4:43 PM CDT [facility] HDL CHOLESTEROL 87 >40 mg/dL 4:43 PM CDT [facility] NON-HDL CHOLESTEROL 91 <145 mg/dl 05/02/2023 4:43 PM CDT [facility] CHOL/HDL RATIO 2.05 <4.50 05/02/2023 4:43 PM CDT [facility] LDL CHOLESTEROL 57 <=130 mg/dL 05/02/2023 4:43 PM CDT [facility] VLDL CHOLESTEROL 34(H) <=30 mg/dL 05/02/2023 4:43 PM CDT [facility] PROVIDER ORDERED STATUS RANDOM 05/02/2023 4:43 PM CDT [facility] Blood BLOOD SPECIMEN / Unknown Venipuncture / Unknown 05/01/2023 3:56 PM CDT 05/01/2023 3:56 PM CDT Frieda Hudson DO CHEMISTRY [facility] [address] [place] [address], [place] * ANTI HCV [28558.2] (08/11/2015 3:44 PM CDT) HEPATITIS C ANTIBODY Non-Reacti ve Non-Reacti ve 08/11/2015 7:07 PM CDT [facility] Blood specimen (specimen) BLOOD SPECIMEN / Unknown Venipuncture / Unknown 08/11/2015 3:44 PM CDT 08/11/2015 3:44 PM CDT Narrative [facility] - 08/11/2015 7:07 PM CDT Antibodies to HCV not detected; does not exclude the possibility of exposure to HCV. Zeeshan Jones MD SEND OUTS [facility] [address] [place] [address], [place] from Last 3 Months or Most Recently Relevant to Health Maintenance Advance Directives Documents on File Type Date Recorded Patient Attendant Self Service Store Expl anation POLST 12/11/2022 2:13 PM POLST, 01/2023 Healthcare Directive 09/29/2008 HEALTH CARE DIRECTIVE, [facility], 09/29/2008 Healthcare Directive 09/29/2008 HEALTH CARE DIRECTIVE, [facility], 09/29/08 Care Teams Chief Analytics Officer Relationship Specialty Start Date End Date Frieda Hudson DO [address] [place] [address] PCP - General Family Practice 08/07/22 Aaron Verdin DPM Podiatry 08/05/13
== END 2024-02-20 18:52 | disposition home or self-care (01) ==
LOC: AMB 02-23 13:20
PROVIDERS: PCP Family Medicine; Visit Provider Emergency Medicine Emergency Medical Services
DX: R53.1 Weakness (principal)
CPT/HCPCS: A0998

== ENCOUNTER 2024-08-20 09:00 | Outpatient (RCR) | payer OTHER, SELFPAY | END 2024-10-06 12:47 | disposition home or self-care (01) | PROVIDERS: PCP Family Medicine; Visit Provider Family Medicine | DX: M17.11 Unilateral primary osteoarthritis, right knee (principal); M25.561 Pain in right knee; M25.571 Pain in right ankle and joints of right foot; G89.29 Other chronic pain; M25.562 Pain in left knee; G80.8 Other cerebral palsy; Z51.89 Encounter for other specified aftercare | CPT/HCPCS: 97112; 97140; 97162; 97530 ==

== ENCOUNTER 2024-12-26 09:46 | Outpatient (CLI) | payer OTHER, SELFPAY | END 2024-12-26 09:47 | disposition home or self-care (01) | LOC: AMB 12-28 13:39 | PROVIDERS: PCP Family Medicine; Visit Provider Emergency Medicine Emergency Medical Services | DX: Z53.9 Procedure and treatment not carried out, unspecified reason (principal) ==